=== PATIENT | male | born 1940 | race Caucasian/White ===

== ENCOUNTER 2017-07-10 13:36 | Emergency (ER) | payer MEDICARE ==
[2017-07-10 16:23] LABS: BASO # 0.1 10^3/uL (0.0-0.2); BASO % 0.8 % (0.0-1.0); EOS # 0.3 10^3/uL (0.0-0.50); EOS % 2.6 % (0.0-3.0); HEMOGLOBIN 14.7 g/dl (13.5-17.5); IMMATURE GRANULOCYTE % 0.7 % (0-3.0); LYMPH % 28.8 % (24.0-44.0); MEAN CORPUSCULAR HEMOGLOBIN 29.8 pg (27.0-33.0); MEAN CORPUSCULAR HGB CONC 33.4 g/dl (32.0-36.5); MEAN CORPUSCULAR VOLUME 89.2 fl (80.0-96.0); MONO % 9.8 % (0.0-5.0); NEUTROPHILS # 5.9 10^3/uL (1.8-7.7); NEUTROPHILS % 57.3 % (36.0-66.0); PLATELET COUNT, AUTOMATED 307 10^3/uL (150-450); RED BLOOD COUNT 4.93 10^6/uL (4.30-6.10); RED CELL DISTRIBUTION WIDTH 12.7 % (11.5-14.5); WHITE BLOOD COUNT 10.3 10^3/uL (4.0-10.0)
[2017-07-10] MEDS: NS 500 ML IV (16:44)
[2017-07-10] MEDS: methylPREDNISolone INJ 125 MG/2 ML VIAL (J2930) IV (16:45)
[2017-07-10 16:48] LABS: ERYTHROCYTE SEDIMENTATION RATE 47 mm/hr (0-20)
[2017-07-10 16:51] LABS: ANION GAP 3 MEQ/L (8-16); BLOOD UREA NITROGEN 10 MG/DL (7-18); C REACTIVE PROTEIN QUANTITATIV 7.84 MG/DL (0.00-0.30); CALCIUM LEVEL 8.9 MG/DL (8.8-10.2); CARBON DIOXIDE LEVEL 30 MEQ/L (21-32); CHLORIDE LEVEL 104 MEQ/L (98-107); CREATININE FOR GFR 0.81 MG/DL (0.70-1.30); GLOMERULAR FILTRATION RATE > 60.0 (>42); GLUCOSE, FASTING 98 MG/DL (70-100); POTASSIUM SERUM 4.6 MEQ/L (3.5-5.1); SODIUM LEVEL 137 MEQ/L (136-145)
[2017-07-10] MEDS: DOXYCYCLINE HYCLATE 100 MG TAB PO (17:45)
[2017-07-10] MEDS: ACETAMINOPH W/CODEINE #3 TAB UD PO (17:57)
[2017-07-13 17:41] LABS: ANTINUCLEAR ANTIBODIES DIRECT Negative (Negative); IgG P18 AB Absent (.); IgG P23 AB Absent (.); IgG P28 AB Absent (.); IgG P30 AB Absent (.); IgG P39 AB Absent (.); IgG P41 AB Absent (.); IgG P45 AB Absent (.); IgG P58 AB Absent (.); IgG P66 AB Absent (.); IgG P93 AB Absent (.); IgM P23 AB Absent (.); IgM P39 AB Absent (.); IgM P41 AB Absent (.); LYME IgG WB INTERPRETATION Negative (.); LYME IgM WB INTERPRETATION Negative (.)
== END 2017-07-10 18:17 | disposition home or self-care (01) ==
LOC: M ED 13:36
DX: M25.50 Pain in unspecified joint (principal); E03.9 Hypothyroidism, unspecified; K21.9 Gastro-esophageal reflux disease without esophagitis; Z79.82 Long term (current) use of aspirin; Z79.899 Other long term (current) drug therapy
CPT/HCPCS: J2930

== ENCOUNTER → 2017-10-31 | Outpatient (CLI) | payer MEDICARE ==
[2017-10-31 12:46] LABS: HEMOGLOBIN 14.5 g/dl (13.5-17.5); MEAN CORPUSCULAR HEMOGLOBIN 30.9 pg (27.0-33.0); MEAN CORPUSCULAR VOLUME 93.6 fl (80.0-96.0); PLATELET COUNT, AUTOMATED 233 10^3/uL (150-450); RED CELL DISTRIBUTION WIDTH 14.2 % (11.5-14.5); WHITE BLOOD COUNT 13.6 10^3/uL (4.0-10.0)
[2017-10-31 13:08] LABS: ERYTHROCYTE SEDIMENTATION RATE 19 mm/hr (0-20)
[2017-10-31 13:56] LABS: CHOLESTEROL LEVEL 197 MG/DL (<200); CHOLESTEROL RISK RATIO 2.736 (<5); HDL CHOLESTEROL 72 MG/DL (>40); LDL CHOLESTEROL 104 MG/DL (<100); NON-HDL-C 125 MG/DL; PROSTATIC SPECIFIC AG MONITOR 1.97 NG/ML (< 4.0); RHEUMATOID FACTOR QUANT < 10.0 IU/ML (<15.0); THYROID STIMULATING HORMONE 0.048 uIU/ML (0.358-3.740); TRIGLYCERIDES LEVEL 104 MG/DL (<150)
[2017-10-31 15:46] LABS: ESTIMATED AVERAGE GLUCOSE 108 MG/DL (60-110); HEMOGLOBIN A1c 5.4 %
== END ==
LOC: M LRY 08:07
DX: M06.9 Rheumatoid arthritis, unspecified (principal); I10 Essential (primary) hypertension; R53.83 Other fatigue; Z79.899 Other long term (current) drug therapy
CPT/HCPCS: 84443

== ENCOUNTER → 2018-02-02 | Outpatient (REF) | payer MEDICARE ==
[2018-02-02 16:03] LABS: BASO # 0.1 10^3/uL (0.0-0.2); BASO % 0.6 % (0.0-1.0); EOS % 0.2 % (0.0-3.0); HEMATOCRIT 47.1 % (42.0-52.0); HEMOGLOBIN 15.9 g/dl (13.5-17.5); IMMATURE GRANULOCYTE % 1.5 % (0-3.0); LYMPH # 2.6 10^3/uL (1.5-4.5); LYMPH % 20.5 % (24.0-44.0); MEAN CORPUSCULAR HGB CONC 33.8 g/dl (32.0-36.5); MEAN CORPUSCULAR VOLUME 91.8 fl (80.0-96.0); MONO # 0.7 10^3/uL (0.0-0.8); MONO % 5.4 % (0.0-5.0); NEUTROPHILS # 9.2 10^3/uL (1.8-7.7); NEUTROPHILS % 71.8 % (36.0-66.0); PLATELET COUNT, AUTOMATED 272 10^3/uL (150-450); RED BLOOD COUNT 5.13 10^6/uL (4.30-6.10); RED CELL DISTRIBUTION WIDTH 13.5 % (11.5-14.5); WHITE BLOOD COUNT 12.8 10^3/uL (4.0-10.0)
[2018-02-02 16:04] LABS: ALBUMIN 3.7 GM/DL (3.2-5.2); ALBUMIN/GLOBULIN RATIO 1.19 (1.00-1.93); ALKALINE PHOSPHATASE 63 U/L (45-117); ALT/SGPT 76 U/L (12-78); ANION GAP 9 MEQ/L (8-16); AST/SGOT 34 U/L (7-37); BILIRUBIN,TOTAL 0.5 MG/DL (0.2-1.0); BLOOD UREA NITROGEN 12 MG/DL (7-18); C REACTIVE PROTEIN QUANTITATIV < 0.30 MG/DL (0.00-0.30); CALCIUM LEVEL 9.3 MG/DL (8.8-10.2); CARBON DIOXIDE LEVEL 28 MEQ/L (21-32); CHLORIDE LEVEL 100 MEQ/L (98-107); CREATININE FOR GFR 0.92 MG/DL (0.70-1.30); GLOMERULAR FILTRATION RATE > 60.0 (>42); GLUCOSE, FASTING 98 MG/DL (70-100); POTASSIUM SERUM 4.5 MEQ/L (3.5-5.1); RHEUMATOID FACTOR QUANT < 10.0 IU/ML (<15.0); SODIUM LEVEL 137 MEQ/L (136-145); TOTAL PROTEIN 6.8 GM/DL (6.4-8.2); URIC ACID 4.7 MG/DL (3.5-7.2)
[2018-02-02 17:08] LABS: ERYTHROCYTE SEDIMENTATION RATE 6 mm/hr (0-20)
== END ==
LOC: M SFHCPLAZ 14:14
DX: M35.3 Polymyalgia rheumatica (principal)
CPT/HCPCS: 84550

== ENCOUNTER → 2018-03-01 | Outpatient (REF) | payer MEDICARE ==
[~2018-03-01] MED LIST: ACET30TAB PO; ARTH650T11 PO; ASPI1TAB PO; CHLO1CAP14 PO; CITA20TA4 PO; DICY10CA13 PO; DOXY-350 PO; GAVISUS PO; METO5TAB2 PO; OMEP20CA3 PO; SUCR1TA PO; THYR60TA PO; TYLE500T78 PO
[2018-03-01 20:40] LABS: C REACTIVE PROTEIN QUANTITATIV 0.46 MG/DL (0.00-0.30); FREE T4 0.61 NG/DL (0.76-1.46); THYROID STIMULATING HORMONE 1.68 uIU/ML (0.358-3.740)
== END ==
LOC: M SFHCPLAZ 15:44
PROVIDERS: ATTEND Internal Medicine Rheumatology
DX: M35.3 Polymyalgia rheumatica (principal); E03.9 Hypothyroidism, unspecified

== ENCOUNTER → 2018-03-01 | Outpatient (CLI) | payer MEDICARE ==
--- NOTE | 2018-03-01 18:53 | REP ---
Bilateral shoulder series: Seven views. History: Shoulder pain. Findings: Glenohumeral and acromioclavicular joints are normally aligned bilaterally. There is mild narrowing and spur formation at the AC joints on both sides. There is some diffuse osteopenia. There is linear fibrosis in the right base and mediastinal clips are noted on the right. No erosive changes seen. Periarticular soft tissues are unremarkable. Impression: Diffuse osteopenia. 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 No acute bony abnormality. Electronically Signed by Adeel Min MD 03/01/2018 07:47 P
--- NOTE | 2018-03-01 19:04 | REP ---
Cervical spine series: Eight views. History: Shoulder pain. Findings: Lateral views done in flexion/extension and neutral position show preserved vertebral body heights. Discogenic spurring and disc narrowing is seen at C3-4, C4-5, C5-6, and C6-7. There is mild osteoarthritic facet hypertrophy noted on the AP views. The patient is edentulous. Oblique images demonstrate uncovertebral spurring on the left narrowing the C5-6 and C6-7 foramina and on the right at C4-5 and C5-6. Impression: Degenerative spondylosis changes as above. No subluxation or instability. Electronically Signed by Adeel Min MD 03/01/2018 07:48 P
== END ==
LOC: M LRY 16:35
PROVIDERS: ATTEND Internal Medicine Rheumatology
DX: M50.31 Other cervical disc degeneration, high cervical region (principal); M50.321 Other cervical disc degeneration at C4-C5 level; M50.322 Other cervical disc degeneration at C5-C6 level; M50.323 Other cervical disc degeneration at C6-C7 level; M25.78 Osteophyte, vertebrae; M85.811 Other specified disorders of bone density and structure, right shoulder; M85.812 Other specified disorders of bone density and structure, left shoulder; M19.011 Primary osteoarthritis, right shoulder; M19.012 Primary osteoarthritis, left shoulder; M25.519 Pain in unspecified shoulder

== ENCOUNTER → 2018-03-28 | Outpatient (REF) | payer MEDICARE ==
[2018-03-28 13:32] LABS: APPEARANCE, URINE CLEAR (CLEAR); BACTERIA, URINE AUTO NEGATIVE (NEGATIVE); BILIRUBIN, URINE AUTO NEGATIVE (NEGATIVE); BLOOD, URINE BLOOD NEGATIVE (NEGATIVE); COLOR, URINE YELLOW (YELLOW); GLUCOSE, URINE (UA) AUTO NEGATIVE (NEGATIVE); KETONE, URINE AUTO NEGATIVE (NEGATIVE); LEUKOCYTE ESTERASE, URINE AUTO NEGATIVE (NEGATIVE); MUCUS, URINE SMALL (NEGATIVE); NITRITE, URINE AUTO NEGATIVE (NEGATIVE); PROTEIN, URINE AUTO NEGATIVE (NEGATIVE); RBC, URINE AUTO 0 /HPF (0-3); SPECIFIC GRAVITY URINE AUTO 1.017 (1.002-1.035); SQUAMOUS EPITHELIAL CELL UR AU 0 /HPF (0-6); WBC, URINE AUTO 0 /HPF (0-3)
[2018-03-28 13:37] LABS: C REACTIVE PROTEIN QUANTITATIV 0.48 MG/DL (0.00-0.30)
[2018-03-28 14:00] LABS: TOTAL PROTEIN,RANDOM URINE 25.9 MG/DL (0.0-12.0)
== END ==
LOC: M SFHCPLAZ 11:13
PROVIDERS: ATTEND Internal Medicine Rheumatology
DX: M35.3 Polymyalgia rheumatica (principal)

== ENCOUNTER → 2019-01-10 | Outpatient (CLI) | payer MEDICARE ==
[~2019-01-10] MED LIST changes: +ACET-716 PO; -ACET30TAB PO; -ASPI1TAB PO; +ASPI81TA26 PO; -CITA20TA4 PO; +CITA20TA6 PO; -OMEP20CA3 PO; +OMEP20CA4 PO
[2019-01-10 12:38] LABS: HEMOGLOBIN 13.7 g/dl (13.5-17.5); MEAN CORPUSCULAR HEMOGLOBIN 25.3 pg (27.0-33.0); MEAN CORPUSCULAR HGB CONC 30.4 g/dl (32.0-36.5); MEAN CORPUSCULAR VOLUME 83.2 fl (80.0-96.0); PLATELET COUNT, AUTOMATED 321 10^3/uL (150-450); RED BLOOD COUNT 5.41 10^6/uL (4.30-6.10); WHITE BLOOD COUNT 13.5 10^3/uL (4.0-10.0)
[2019-01-10 12:56] LABS: HEMOGLOBIN A1c 5.6 %
[2019-01-10 13:18] LABS: ALBUMIN 3.2 GM/DL (3.2-5.2); ALT/SGPT 24 U/L (12-78); AMYLASE 36 U/L (25-115); BILIRUBIN,TOTAL 0.4 MG/DL (0.2-1.0); BLOOD UREA NITROGEN 10 MG/DL (7-18); CALCIUM LEVEL 9.1 MG/DL (8.8-10.2); CARBON DIOXIDE LEVEL 28 MEQ/L (21-32); CHLORIDE LEVEL 100 MEQ/L (98-107); CREATININE FOR GFR 0.97 MG/DL (0.70-1.30); GLOMERULAR FILTRATION RATE > 60.0 (>42); GLUCOSE, FASTING 86 MG/DL (70-100); POTASSIUM SERUM 4.5 MEQ/L (3.5-5.1); PROSTATIC SPECIFIC AG MONITOR 3.98 NG/ML (< 4.00); SODIUM LEVEL 136 MEQ/L (136-145); TOTAL PROTEIN 6.8 GM/DL (6.4-8.2)
== END ==
LOC: M LAB 11:53
PROVIDERS: ATTEND Family Medicine
DX: R97.20 Elevated prostate specific antigen [PSA] (principal); E03.9 Hypothyroidism, unspecified; Z79.899 Other long term (current) drug therapy; Z79.82 Long term (current) use of aspirin

== ENCOUNTER → 2019-01-18 | Outpatient (CLI) | payer MEDICARE ==
[~2019-01-18] MED LIST changes: +D-20TAB PO; +MULTCAP PO; +PRED1TABL PO; +PRED5TA PO; +PROBCAP14 PO; +TEST200I14 IM
--- NOTE | 2019-01-18 15:37 | REP ---
Clinical: Epigastric mass. Technique: Axial noncontrast images from the thoracic inlet to the upper abdomen with coronal and sagittal re-formations. Comparison: The lung images from abdominal CT dated 09/03/2014. Findings: The patient appears to be status post esophagectomy with gastric pull-through procedure. The intrathoracic stomach extends to the right side of the thorax and contains significant residual gastric material likely transient. A small chronic right basilar pleural effusion and associated fiber atelectatic changes along with pleuroparenchymal changes along the periphery of the right middle lobe remain stable compared to 2015. No acute consolidation, obvious nodule or mass lesion. Mediastinum demonstrates atherosclerotic changes to the thoracic aorta and coronary arteries. No adenopathy. No cardiomegaly or pericardial effusion. Osseous structures without focal abnormality noted. Impression: 1. Chronic changes involving the mediastinum and right hemithorax as described above consistent with prior esophagectomy and gastric pull-through procedure which remain stable compared to 2015. 2. No acute mediastinal or pleuroparenchymal process appreciated. If there is continued concern, PET-CT to evaluate for subtle metastatic disease may be warranted. Electronically Signed by Roe Mtz MD 01/18/2019 03:28 P
--- NOTE | 2019-01-18 15:41 | REP ---
Clinical: Mass. Technique: Axial noncontrast images from the lung bases to the pubic symphysis with coronal and sagittal re-formations. Comparison: 09/03/2014. Findings: Stable findings at the lung bases and upper abdomen consistent with the given history of esophagectomy and gastric pull-through surgery unchanged compared to 2015. Subcentimeter hypodensity in the left lobe of the liver remains stable and consistent with small cyst or hemangioma. Spleen, pancreas, bilateral adrenal glands and kidneys are essentially normal for noncontrast evaluation. Evidence of prior cholecystectomy. Evaluation of the enteric system is without obstruction there is a small supraumbilical midline ventral hernia which contains nonobstructed portion of the transverse colon. Colonic diverticulosis noted without acute diverticulitis. Normal terminal ileum and appendix are identified in the right lower quadrant. Pelvis demonstrates prostatomegaly measuring 6.7 x 5.2 cm diameter and having mass effect on the otherwise normal appearing bladder. Small fat containing inguinal hernias noted. No ascites. No free air. No adenopathy. Atherosclerotic changes to the aorta and vasculature noted without aneurysm. Musculoskeletal structures demonstrate degenerative changes. Impression: 1. Chronic stable changes related to prior esophagectomy and gastric pull-through surgery. 2. Small supraumbilical ventral hernia containing unobstructed portion of the transverse colon. 3. Prostatomegaly. 4. Colonic diverticulosis without acute diverticulitis. 5. Fat containing inguinal hernias. 6. No further acute abdominopelvic pathology appreciated. Electronically Signed by Roe Mtz MD 01/18/2019 03:32 P
== END ==
LOC: M RAD 14:37
PROVIDERS: ATTEND Family Medicine
DX: Z90.49 Acquired absence of other specified parts of digestive tract (principal); J91.8 Pleural effusion in other conditions classified elsewhere; K43.9 Ventral hernia without obstruction or gangrene; N40.1 Benign prostatic hyperplasia with lower urinary tract symptoms; K57.30 Diverticulosis of large intestine without perforation or abscess without bleeding

== ENCOUNTER 2019-01-30 09:16 | Day surgery (SDC) | payer MEDICARE ==
[~2019-01-30] VITALS: Ht 177.8 cm; Wt 107.0 kg
[~2019-01-30 09:16] MED LIST changes: +NS 1,000 ML IV ONE; +OMEP-172 PO; -OMEP20CA4 PO
[2019-01-30] MEDS ORDERED: PROPOFOL 200 MG/20 ML VIAL As Ordered ONE ×2 (10:48→10:49)
[2019-01-30] MEDS ORDERED: LIDOCAINE 2% INJ 100 MG/5 ML SDV (FOR ANES.) As Ordered ONE (10:49)
[2019-01-30 12:45] VITALS: BP 160/73
--- NOTE | 2019-01-30 13:36 | ROOR ---
Patient Name: Bobby Zimmerman Procedure Date: 01/30/2019 10:44 AM Date of : 1940 Age: 78 Room: [facility] Gender: Male Note Status: Finalized Procedure: Upper GI endoscopy Indications: Assessment following esophagogastrectomy Providers: Rubin Garcia MD Referring MD: NANNETTE WOODARD MD Requesting Provider: Medicines: Monitored Anesthesia Care Complications: No immediate complications. Procedure: Pre-Anesthesia Assessment: - Prior to the procedure, a History and Physical was performed, and patient medications and allergies were reviewed. The patient is competent. The risks and benefits of the procedure and the sedation options and risks were discussed with the patient. All questions were answered and informed consent was obtained. Patient identification and proposed procedure were verified by the physician, the nurse and the anesthesiologist in the procedure room. Mental Status Examination: alert and oriented. CV Examination: regular rate and rhythm. Prophylactic Antibiotics: The patient does not require prophylactic antibiotics. Prior Anticoagulants: The patient has taken no previous anticoagulant or antiplatelet agents. ASA Grade Assessment: III - A patient with severe systemic disease. After reviewing the risks and benefits, the patient was deemed in satisfactory condition to undergo the procedure. The anesthesia plan was to use monitored anesthesia care (MAC). Immediately prior to administration of medications, the patient was re-assessed for adequacy to receive sedatives. The heart rate, respiratory rate, oxygen saturations, blood pressure, adequacy of pulmonary ventilation, and response to care were monitored throughout the procedure. The physical status of the patient was re-assessed after the procedure. The Endoscope was introduced through the mouth, and advanced to the esophageal anastomosis. The upper GI endoscopy was performed with difficulty due to presence of food. Successful completion of the procedure was aided by performing the maneuvers documented (below) in this report. The patient tolerated the procedure well. Findings: Food was found in the proximal esophagus. Removal of food was accomplished. Several fragments of what appeared to be a leafy vegetable were suctioned to the end of the scope and withdrawn. The esopagogastric anastomosis appeared normal. There was a transversely oriented ulceration running approximately [address] across the esophagus. A large amount of food (residue) was found in the entire examined stomach. The gastric remnant seemed to be filled with vegetable matter so the examination was aborted. Impression: - Food in the proximal esophagus. Removal was successful. - A large amount of food (residue) in the stomach. - Non-bleeding esophageal ulcer. Recommendation: - Discharge patient to home. - Resume previous diet. - Continue present medications. - Return to my office at appointment to be scheduled. Rubin Garcia MD Rubin Garcia MD 01/30/2019 1:35:58 PM Electronically signed by Rubin Garcia MD Number of Addenda: 0 Note Initiated On: 01/30/2019 10:44 AM Estimated Blood Loss: Estimated blood loss: none.
--- NOTE | 2019-01-30 16:05 | ROOR ---
Patient Name: Bobby Zimmerman Procedure Date: 01/30/2019 10:44 AM Date of : 1940 Age: 78 Room: [facility] Gender: Male Note Status: Finalized Procedure: Colonoscopy Indications: High risk colon cancer surveillance: Personal history of colonic polyps Providers: Rubin Garcia MD Referring MD: NANNETTE WOODARD MD Requesting Provider: Medicines: Monitored Anesthesia Care Complications: No immediate complications. Procedure: Pre-Anesthesia Assessment: - Prior to the procedure, a History and Physical was performed, and patient medications and allergies were reviewed. The patient is competent. The risks and benefits of the procedure and the sedation options and risks were discussed with the patient. All questions were answered and informed consent was obtained. Patient identification and proposed procedure were verified by the physician, the nurse and the anesthesiologist in the procedure room. Mental Status Examination: alert and oriented. Prophylactic Antibiotics: The patient does not require prophylactic antibiotics. Prior Anticoagulants: The patient has taken no previous anticoagulant or antiplatelet agents. ASA Grade Assessment: III - A patient with severe systemic disease. After reviewing the risks and benefits, the patient was deemed in satisfactory condition to undergo the procedure. The anesthesia plan was to use monitored anesthesia care (MAC). Immediately prior to administration of medications, the patient was re-assessed for adequacy to receive sedatives. The heart rate, respiratory rate, oxygen saturations, blood pressure, adequacy of pulmonary ventilation, and response to care were monitored throughout the procedure. The physical status of the patient was re-assessed after the procedure. The Colonoscope was introduced through the anus with the intention of advancing to the cecum. The scope was advanced to the sigmoid colon before the procedure was aborted. Medications were given. The colonoscopy was aborted due to the patient's respiratory instability (hypoxia). Managing the patient's medical instability did not allow for the successful completion of the procedure. Findings: The perianal and digital rectal examinations were normal. A possible polyp up to 6 mm was briefly seen in the sigmoid colon. [Pedicle]. Diverticula were found in the sigmoid colon. Impression: - The procedure was aborted due to the patient's respiratory instability (hypoxia). - No specimens collected. Recommendation: - Discharge patient to home. - Resume previous diet. - Continue present medications. - Return to my office in 2 weeks. - Patient will need further evaluation to determine the cause of the retained food in the stomach and esophagus. He should have a follow up colonic study as he seemed to have at least 1 polyp seen briefly before the scope was aborted. Rubin Garcia MD Rubin Garcia MD 01/30/2019 4:04:49 PM Electronically signed by Rubin Garcia MD Number of Addenda: 0 Note Initiated On: 01/30/2019 10:44 AM Estimated Blood Loss: Estimated blood loss: none.
== END 2019-01-30 13:20 | disposition home or self-care (01) ==
LOC: M OPP 09:16
PROVIDERS: ATTEND Surgery
DX: T18.128A Food in esophagus causing other injury, initial encounter (principal); X58.XXXA Exposure to other specified factors, initial encounter; Y92.89 Other specified places as the place of occurrence of the external cause; K22.10 Ulcer of esophagus without bleeding; Z90.49 Acquired absence of other specified parts of digestive tract; Z85.01 Personal history of malignant neoplasm of esophagus; Z12.11 Encounter for screening for malignant neoplasm of colon; Z86.010 Personal history of colon polyps; Z80.0 Family history of malignant neoplasm of digestive organs; R09.02 Hypoxemia; Z53.09 Procedure and treatment not carried out because of other contraindication; E03.9 Hypothyroidism, unspecified; R06.02 Shortness of breath; M19.90 Unspecified osteoarthritis, unspecified site; M35.3 Polymyalgia rheumatica; K44.9 Diaphragmatic hernia without obstruction or gangrene; K58.9 Irritable bowel syndrome, unspecified; K57.92 Diverticulitis of intestine, part unspecified, without perforation or abscess without bleeding; Z79.899 Other long term (current) drug therapy; Z79.52 Long term (current) use of systemic steroids
CPT/HCPCS: 43215; G0105

== ENCOUNTER → 2019-02-28 | Outpatient (CLI) | payer MEDICARE ==
[~2019-02-28] MED LIST changes: -ARTH650T11 PO; +ARTH650T4 PO; -NS 1,000 ML IV ONE; -OMEP-172 PO; +OMEP1CAP73 PO
[2019-02-28 09:24] LABS: HEMATOCRIT 47.7 % (42.0-52.0); MEAN CORPUSCULAR HGB CONC 29.4 g/dl (32.0-36.5); MEAN CORPUSCULAR VOLUME 81.7 fl (80.0-96.0); PLATELET COUNT, AUTOMATED 296 10^3/uL (150-450); RED BLOOD COUNT 5.84 10^6/uL (4.30-6.10); WHITE BLOOD COUNT 10.7 10^3/uL (4.0-10.0)
[2019-02-28 09:35] LABS: INR 1.21
--- NOTE | 2019-02-28 09:56 | REP ---
CHEST, TWO VIEWS: Comparison 09/03/2014. Bibasilar fibrotic scarring and blunting of the right costophrenic angle and posterior costophrenic sulcus are all unchanged. No acute infiltrate is seen. Heart does not appear to be significantly enlarged. Mediastinal silhouette is unchanged. There are mild degenerative changes of the spine. IMPRESSION: Stable chronic findings without evidence of acute infiltrate. Electronically Signed by Chacorta Wolf MD 02/28/2019 05:35 P
[2019-02-28 09:59] LABS: ALBUMIN 3.4 GM/DL (3.2-5.2); ALT/SGPT 25 U/L (12-78); BILIRUBIN,TOTAL 0.3 MG/DL (0.2-1.0); BLOOD UREA NITROGEN 8 MG/DL (7-18); CALCIUM LEVEL 8.8 MG/DL (8.8-10.2); CARBON DIOXIDE LEVEL 29 MEQ/L (21-32); CHLORIDE LEVEL 102 MEQ/L (98-107); CHOLESTEROL LEVEL 202 MG/DL (<200); CHOLESTEROL RISK RATIO 4.697 (<5); CREATININE FOR GFR 0.95 MG/DL (0.70-1.30); GLOMERULAR FILTRATION RATE > 60.0 (>42); GLUCOSE, FASTING 81 MG/DL (70-100); HDL CHOLESTEROL 43 MG/DL (>40); LDL CHOLESTEROL 131 MG/DL (<100); NON-HDL-C 159 MG/DL; POTASSIUM SERUM 4.4 MEQ/L (3.5-5.1); SODIUM LEVEL 138 MEQ/L (136-145); THYROID STIMULATING HORMONE 0.111 uIU/ML (0.358-3.740); TOTAL PROTEIN 6.7 GM/DL (6.4-8.2); TRIGLYCERIDES LEVEL 138 MG/DL (<150)
[2019-02-28 10:40] LABS: HEMOGLOBIN A1c 6.1 %
[2019-02-28 11:14] LABS: TESTOSTERONE 886 NG/DL (241-827)
--- NOTE | 2019-02-28 19:54 | ECGEPIP ---
[facility] Test Date: 2019-02-28 Pat Name: DARSHANA RAO Department: Room: - Gender: Male Medical Staff Specialist: TRINIDAD : 1940 Requested By: Shoshana Infante Order Number: [id number] Reading MD: Dandy Alaniz Measurements Intervals [place] Rate: 64 P: 54 MO: 202 QRS: -5 QRSD: 104 T: 18 QT: 387 QTc: 402 Interpretive Statements SINUS RHYTHM WITH OCCASIONAL VENTRICULAR PREMATURE COMPLEXES Comparison tracing not on file Electronically Signed on 02-28-2019 19:53:55 EST by Dandy Alaniz
== END ==
LOC: M LAB 08:14
PROVIDERS: ATTEND Family Medicine
DX: I10 Essential (primary) hypertension (principal); E03.9 Hypothyroidism, unspecified; R53.83 Other fatigue; Z01.818 Encounter for other preprocedural examination; Z79.899 Other long term (current) drug therapy

== ENCOUNTER 2019-03-16 07:19 | Day surgery (SDC) | payer MEDICARE ==
[~2019-03-16] VITALS: Ht 177.8 cm; Wt 103.3 kg
[~2019-03-16 07:19] MED LIST changes: +LR 1,000 ML IV ONE
[2019-03-16] MEDS ORDERED: propofoL 500 MG/50 ML VIAL As Ordered ONE (08:05)
[2019-03-16] MEDS ORDERED: LIDOCAINE 2% INJ 100 MG/5 ML SDV (FOR ANES.) As Ordered ONE (08:05)
[2019-03-16] MEDS ORDERED: SUCCINYLCHOLINE 100 MG/5 ML SYRINGE (J0330) As Ordered ONE (09:51)
[2019-03-16] MEDS ORDERED: ePHEDrine SULFATE 25 MG/5 ML(5MG/ML) SYRINGE As Ordered ONE ×2 (09:51→12:21)
[2019-03-16] MEDS ORDERED: PHENYLephrine HCL 500 MCG/5 ML (100MCG/ML) SYRINGE (J2370) As Ordered ONE (10:06)
[2019-03-16] MEDS ORDERED: ROCURONIUM BROMIDE 50 MG/5 ML VIAL As Ordered ONE (10:09)
[2019-03-16] MEDS ORDERED: SUGAMMADEX SODIUM 500 MG/5 ML VIAL (BRIDION) As Ordered ONE (10:32)
[2019-03-16] MEDS ORDERED: ONDANSETRON 4MG/2ML VIAL (J2405) IV PRN (11:45)
[2019-03-16] MEDS ORDERED: LR 1,000 ML IV SCH (11:45)
[2019-03-16] MEDS ORDERED: HYDROMORPHONE HCL 0.5 MG/ 0.5 ML SYRINGE (J1170 PER 1) IV PRN (11:45)
[2019-03-16] MEDS ORDERED: fentaNYL 100 MCG/2 ML INJECTION (J3010) IV PRN (11:45)
[2019-03-16 13:08] VITALS: BP 127/60
--- NOTE | 2019-03-16 21:17 | RO ---
DATE OF PROCEDURE: 03/16/2019 PREOPERATIVE DIAGNOSIS: Chronic diarrhea with possible colonic polyp on recent aborted colonoscopy. POSTOPERATIVE DIAGNOSIS: Multiple colonic polyps, sigmoid diverticulosis, and chronic diarrhea. PROCEDURE PERFORMED Colonoscopy, snare excision of multiple polyps, biopsy of several small polyps, and mucosal biopsies for chronic diarrhea. SURGEON: Rubin Garcia MD ANESTHESIA: General. INDICATIONS FOR PROCEDURE The patient is a 78-year-old man with a history of colonic polyps. On January 30 an EGD and colonoscopy were attempted. He is status post an esophagogastrectomy for cancer and his esophagus is quite short. He had retained food in his gastric remnant. His colonoscopy was attempted but with adequate sedation to perform the procedure he had respiratory difficulties with desaturations and he had his procedure aborted and is brought in today for colonoscopy under general anesthesia. At the time of that aborted colonoscopy I did think that I had seen a small polyp at the level of about 30 cm. OPERATIVE PROCEDURE The patient was brought to the operating room and placed under general endotracheal anesthesia. He was rolled into a left lateral decubitus position. A digital rectal examination was performed which revealed no palpable mucosal lesions. The colonoscope was inserted and advanced under continuous video monitoring to the cecum. The appendiceal orifice was clearly identified. His bowel prep was good though there was some greenish turbid fluid in the right colon but this could be aspirated and irrigated without much difficulty. The scope was slowly withdrawn. There was a small polyps no more than 3-4 mm in the ascending colon and this was removed with a jumbo forceps and sent for pathology. With further withdrawal of the scope. The patient was noted to have multiple polyps through the colon including the ascending colon, transverse colon, descending colon and sigmoid. There were at least six to eight polyps in the range of 4-7 mm that were removed with a hot snare. One of these polyps was not adequately cauterized and a single hemostatic hemoclip was placed to stop some oozing at this polypectomy site. All of these fragments were collected and sent together as colonic polyps. Also in the transverse colon there were several small polyps noted together. These were all approximately 3 mm in size and three or four of these were biopsied with a jumbo forceps essentially destroying the polyps. These fragments were all sent in a second container labeled colonic polyps. Several random biopsies of the mucosa were also obtained during the course of the procedure given his history of chronic diarrhea. He was noted to have fairly marked diverticulosis, particularly involving the distal descending and sigmoid colons. The patient tolerated the procedure well without apparent complication. His bleeding was minimal. He was awakened in the operating room, extubated and transported to the recovery room in stable condition. OSITO
== END 2019-03-16 13:09 | disposition home or self-care (01) ==
LOC: M SDC 07:19
PROVIDERS: ATTEND Surgery
DX: D12.6 Benign neoplasm of colon, unspecified (principal); K57.30 Diverticulosis of large intestine without perforation or abscess without bleeding; M35.3 Polymyalgia rheumatica; K58.0 Irritable bowel syndrome with diarrhea; E03.9 Hypothyroidism, unspecified; F41.9 Anxiety disorder, unspecified; F32.9 Major depressive disorder, single episode, unspecified; K44.9 Diaphragmatic hernia without obstruction or gangrene; K21.9 Gastro-esophageal reflux disease without esophagitis; M19.90 Unspecified osteoarthritis, unspecified site; Z85.01 Personal history of malignant neoplasm of esophagus; Z87.891 Personal history of nicotine dependence; Z79.899 Other long term (current) drug therapy; Z79.52 Long term (current) use of systemic steroids
CPT/HCPCS: 45380; 45384; 45385; 88305; J0330; J2370

== ENCOUNTER → 2019-08-22 | Outpatient (CLI) | payer MEDICARE ==
[~2019-08-22] MED LIST changes: +ARTH650T11 PO; -ARTH650T4 PO; -LR 1,000 ML IV ONE
[2019-08-22 09:09] LABS: HEMATOCRIT 45.5 % (42.0-52.0); HEMOGLOBIN 14.2 g/dl (13.5-17.5); MEAN CORPUSCULAR HEMOGLOBIN 28.5 pg (27.0-33.0); MEAN CORPUSCULAR HGB CONC 31.2 g/dl (32.0-36.5); MEAN CORPUSCULAR VOLUME 91.2 fl (80.0-96.0); PLATELET COUNT, AUTOMATED 318 10^3/uL (150-450); RED BLOOD COUNT 4.99 10^6/uL (4.30-6.10); WHITE BLOOD COUNT 9.6 10^3/uL (4.0-10.0)
[2019-08-22 09:13] LABS: PROTHROMBIN TIME 12.9 SECONDS (11.8-14.0)
[2019-08-22 09:31] LABS: HEMOGLOBIN A1c 6.1 %
[2019-08-22 09:33] LABS: ALBUMIN 3.1 GM/DL (3.2-5.2); ALT/SGPT 24 U/L (12-78); BILIRUBIN,TOTAL 0.3 MG/DL (0.2-1.0); BLOOD UREA NITROGEN 11 MG/DL (7-18); CALCIUM LEVEL 9.5 MG/DL (8.8-10.2); CARBON DIOXIDE LEVEL 29 MEQ/L (21-32); CHLORIDE LEVEL 105 MEQ/L (98-107); CHOLESTEROL LEVEL 203 MG/DL (<200); CHOLESTEROL RISK RATIO 3.625 (<5); CREATININE FOR GFR 0.82 MG/DL (0.70-1.30); GLOMERULAR FILTRATION RATE > 60.0 (>42); GLUCOSE, FASTING 92 MG/DL (70-100); HDL CHOLESTEROL 56 MG/DL (>40); LDL CHOLESTEROL 116 MG/DL (<100); NON-HDL-C 147 MG/DL; POTASSIUM SERUM 4.3 MEQ/L (3.5-5.1); PROSTATIC SPECIFIC AG MONITOR 2.43 NG/ML (< 4.00); SODIUM LEVEL 140 MEQ/L (136-145); TOTAL PROTEIN 7.2 GM/DL (6.4-8.2); TRIGLYCERIDES LEVEL 154 MG/DL (<150)
--- NOTE | 2019-08-22 12:15 | ECGEPIP ---
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
--- NOTE | 2019-08-22 12:25 | REP ---
REASON FOR EXAM: Followup. Fatigue. COMPARISON: 02/29/24 There are chronic bibasilar opacities right greater than left. Although these appear stable from 29/06/2019, they appear to have increased from the next latest prior examination of 09/03/2014. The cardiomediastinal silhouette is unchanged. The heart is not enlarged. There is no significant change in the appearance of the osseous structures. IMPRESSION: There are chronic lung base changes as described above. Consider followup with chest CT for further evaluation. Electronically Signed by Vazquez Camacho DO 08/22/2019 05:20 P
== END ==
LOC: M LAB 07:49
PROVIDERS: ATTEND Family Medicine
DX: R53.83 Other fatigue (principal); E03.9 Hypothyroidism, unspecified; Z79.899 Other long term (current) drug therapy

== ENCOUNTER 2020-07-13 09:42 | Inpatient (IN) | payer MEDICARE ==
[~2020-07-13] VITALS: Ht 177.8 cm; Wt 98.5 kg
[2020-07-13] MEDS ORDERED: ACET-683 PO (09:52)
--- NOTE | 2020-07-13 10:26 | REP ---
INDICATION: Altered Mental Status COMPARISON: None. TECHNIQUE: Axial noncontrast images from the skull base to the thoracic inlet with coronal reformations. This CT examination was performed using the following dose reduction techniques: Automated exposure control, adjustment of mA and/or kv according to the patient's size, and use of iterative reconstruction technique. FINDINGS: Subacute low-density changes in the left occipital lobe is concerning for recent infarction and should be correlated clinically. No significant mass effect. No hemorrhage. Underlying chronic age-related changes noted. No extra-axial fluid collection. Calvarium is intact. Paranasal sinuses and mastoid air cells are clear. IMPRESSION: 1. Findings suggest subacute infarction involving the left occipital lobe and correlation is required. No edema, mass effect or hemorrhage noted. <Electronically signed by Roe Mtz > 07/13/20 [id number]
[2020-07-13 11:05] LABS: BASO # 0.1 10^3/uL (0.0-0.2); BASO % 0.8 % (0.0-1.0); EOS # 0.2 10^3/uL (0.0-0.5); EOS % 2.1 % (0.0-3.0); HEMATOCRIT 43.4 % (42.0-52.0); HEMOGLOBIN 14.1 g/dl (13.5-17.5); LYMPH # 2.3 10^3/uL (1.5-5.0); MEAN CORPUSCULAR HEMOGLOBIN 28.5 pg (27.0-33.0); MEAN CORPUSCULAR HGB CONC 32.5 g/dl (32.0-36.5); MEAN CORPUSCULAR VOLUME 87.7 fl (80.0-96.0); MONO % 9.6 % (2.0-8.0); NEUTROPHILS # 6.3 10^3/uL (1.5-8.5); NEUTROPHILS % 64.1 % (36.0-66.0); PLATELET COUNT, AUTOMATED 243 10^3/uL (150-450); RED BLOOD COUNT 4.95 10^6/uL (4.30-6.10); WHITE BLOOD COUNT 9.9 10^3/uL (4.0-10.0)
[2020-07-13 11:22] LABS: OSMOLALITY SERUM 286 MOSM/KG (280-301)
[2020-07-13 11:30] LABS: ERYTHROCYTE SEDIMENTATION RATE 12 mm/hr (0-20)
[2020-07-13 11:37] LABS: ALBUMIN 3.4 GM/DL (3.2-5.2); ALT/SGPT 30 U/L (12-78); BILIRUBIN,DIRECT 0.1 MG/DL (0.0-0.2); BILIRUBIN,TOTAL 0.3 MG/DL (0.2-1.0); BLOOD UREA NITROGEN 11 MG/DL (7-18); CALCIUM LEVEL 9.3 MG/DL (8.8-10.2); CARBON DIOXIDE LEVEL 28 MEQ/L (21-32); CHLORIDE LEVEL 104 MEQ/L (98-107); CPK CREATINE PHOSPHOKINASE 53 U/L (39-308); CREATININE FOR GFR 0.73 MG/DL (0.70-1.30); GLOMERULAR FILTRATION RATE > 60.0 (>42); GLUCOSE, FASTING 89 MG/DL (70-100); MB/CK RELATIVE INDEX 3.77 (< OR =4); POTASSIUM SERUM 4.5 MEQ/L (3.5-5.1); SODIUM LEVEL 138 MEQ/L (136-145); THYROID STIMULATING HORMONE 0.066 uIU/ML (0.358-3.740); TOTAL PROTEIN 6.7 GM/DL (6.4-8.2); TROPONIN I < 0.02 NG/ML (< 0.10)
[2020-07-13] MEDS ORDERED: METO10TA2 PO (11:39)
[2020-07-13] MEDS ORDERED: DICY20TA11 PO (11:39)
[2020-07-13] MEDS ORDERED: LEXA1TAB PO (11:39)
[2020-07-13] MEDS ORDERED: NP T60TA PO (11:39)
[2020-07-13] MEDS ORDERED: FLUO40CA PO (11:39)
[2020-07-13] MEDS ORDERED: D31000TA2 PO (11:39)
[2020-07-13] MEDS ORDERED: OMEP-221 PO (11:39)
[2020-07-13] MEDS ORDERED: METOCLOPRAMIDE 10 MG TAB PO PRN (12:45)
[2020-07-13 12:47] LABS: FREE T3 3.4 PG/ML (2.2-4.0)
--- NOTE | 2020-07-13 12:58 | REPVR ---
PROCEDURE INFORMATION: Exam: MR Head Without Contrast Exam date and time: 07/13/2020 12:46 PM Age: 80 years old Clinical indication: Abnormal findings; Abnormal radiologic findings of head/skull; Intracranial mass/space-occupying lesion; Additional info: ? Occiptal infarct on CT TECHNIQUE: Imaging protocol: MR of the head without contrast. COMPARISON: CT Head without contrast 07/13/2020 10:06 AM FINDINGS: Brain: Medial left temporal and parieto-occipital true diffusion restriction with correlative cytotoxic edema on the T2 weighted imaging in keeping with recent, subacute infarction in the left [employer]EN[employer]ICE TECHNICIAN territory. No evidence of infarct hemorrhagic conversion. The brain demonstrates generalized volume loss. Patchy foci of increased signal intensity in the deep and subcortical white matter as well as ulices on the T2 weighted imaging most likely representing chronic small vessel ischemic change. Cerebral ventricles: The posterior left lateral ventricle is partially effaced. The ventricles are otherwise mildly enlarged in keeping with volume loss. Bones/joints: Unremarkable. Paranasal sinuses: Normal as visualized. No acute sinusitis. Mastoid air cells: The mastoids are chronically underpneumatized. Orbital cavity: Thinning of the lenses of the globes consistent with prior lens surgery. Soft tissues: Left frontal scalp likely sebaceous cyst. 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 Electronically signed by: Emma Ye On 07/13/2020 12:58:14 PM
--- NOTE | 2020-07-13 13:03 | REPVR ---
PROCEDURE INFORMATION: Exam: MRA Head Without Contrast; Arteriography Exam date and time: 07/13/2020 12:46 PM Age: 80 years old Clinical indication: Abnormal findings; Abnormal CT of the head; Additional info: ? Occiptal infarct on CT. Given the presence of infarct, evaluation of the intracranial arteries was performed. TECHNIQUE: Imaging protocol: Magnetic resonance angiography head without contrast. Exam focused on the arteries. COMPARISON: CT Head without contrast 07/13/2020 10:06 AM MRI-Brain without Contrast 07/13/2020 12:10:52 PM FINDINGS: ANTERIOR CIRCULATION: Right internal carotid artery: Intracranial segment is patent with no significant stenosis. No aneurysm. Right middle cerebral artery: No occlusion or significant stenosis. No aneurysm. Right anterior cerebral artery: The right A1 is developmentally hypoplastic. 2 mm medially directed outpouching near the junction of the right A1 and A2 segment suspicious for a tiny aneurysm, image 11 series 908. Left internal carotid artery: Intracranial segment is patent with no significant stenosis. No aneurysm. Left middle cerebral artery: No occlusion or significant stenosis. No aneurysm. Left anterior cerebral artery: No occlusion or significant stenosis. No aneurysm. POSTERIOR CIRCULATION: Right vertebral artery: No occlusion or significant stenosis. No aneurysm. Left vertebral artery: No occlusion or significant stenosis. No aneurysm. Basilar artery: No occlusion or significant stenosis. No aneurysm. Right posterior cerebral artery: The right posterior cerebral artery demonstrates a moderate segmental stenosis in the P2 segment. 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 IMPRESSION: 1. 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 2. 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 Electronically signed by: Emma Ye On 07/13/2020 13:03:12 PM
--- NOTE | 2020-07-13 13:46 | REP ---
INDICATION: Occipital infarct COMPARISON: None. TECHNIQUE: Wolf scale and color Doppler evaluation using linear high frequency transducer Findings: FINDINGS: Two-dimensional wolf scale and color images demonstrate normal arterial lumen with laminar flow and no appreciable narrowing. Color Doppler interrogation demonstrates normal arterial wave patterns and velocities with no significant spectral broadening. Normal flow direction is appreciated in the bilateral vertebral arteries. ICA peak systolic velocity: Right 41.8 cm/s; Left 45.4 cm/s ICA diastolic velocity: Right 8.7 cm/s; Left 8.6 cm/s ECA peak systolic velocity: Right 65.6 cm/s; Left 112.6 cm/s CCA peak systolic velocity: Right 58.7 cm/s; Left 38.8 cm/s ICA/CCA ratio: Right 0.71 cm/s; Left 1.17 cm/s IMPRESSION: No hemodynamically significant areas of narrowing or stenosis appreciated. Based on set standards narrowing falls within the less than 50% range. <Electronically signed by Roe Mtz > 07/13/20 [id number]
[2020-07-13 13:54] VITALS: BP 178/72
[2020-07-13] MEDS: ASPIRIN 81MG ENTERIC TABLET PO SCH (14:06)
[2020-07-13] MEDS: CLOPIDOGREL 75 MG TAB PO SCH (14:07)
[2020-07-13] MEDS: ACETAMINOPHEN 500 MG TAB PO PRN ×2 (14:08→20:20)
[2020-07-13] MEDS: CALCIUM CARBONATE 500 MG CHEW U/D PO PRN (14:11)
--- NOTE | 2020-07-13 14:34 | HPEPDOC ---
General Date of Admission July 13, 2020 Date of Service: July 13, 2020 Chief Complaint The patient is a 80-year-old male admitted with a reason for visit of Headache. Source: Patient, Family History of Present Illness Mr. Zimmerman is a 80 year old male with hypothyroidism and polymyalgia rheumatic who is here for worsening vision and headache. About 3 days ago, he woke up with a headache and blurry vision, worse with the left eye. He has had injury to the left eye in the past, and he thought it may be related to that. Despite that, his vision and headache did not improve. He tried taking 1500mg of Tylenol for the headache and it only took off the edge. Since he was not improving, he came to the ED for evaluation. While in the ED, he was bradycardic, but he was hypert ensive with SBP in the 190s and 180s. CT head demonstrates subacute inaction involving the left occipital lobe. Otherwise, nurse performed vision acuity test. He scored 50/20 on the right and 70/20 on the left. Otherwise, Patient still has a headache. Patient has chronic dyspnea and chronic cough that is unchanged from prior. Patient denies any fever or chest pain. Patient will be admitted for CVA work up. Home Medications Scheduled Cholecalciferol (Vitamin D3) (Vitamin D3) 1,000 Unit Tablet, 2,000 UNITS PO DAILY, (Reported) Dicyclomine HCl (Dicyclomine HCl) 20 Mg Tablet, 20 MG PO TID, (Reported) Escitalopram Oxalate (Lexapro) 10 Mg Tablet, 10 MG PO QHS, (Reported) Omeprazole (Omeprazole) 40 Mg Capsule.dr, 40 MG PO QHS, (Reported) Prednisone (Prednisone) 5 Mg Tablet, 5 MG PO QHS, (Reported) Sucralfate (Sucralfate) 1 Gm Tab, 1 GM PO ACHS, (Reported) Thyroid,Pork (Grain Oilseed Or Pasture Farm Manager Thyroid) 60 Mg Tablet, 120 MG PO QHS, (Reported) Scheduled PRN Acetaminophen (Acetaminophen) 500 Mg Tablet, 1,000 MG PO Q6H PRN for PAIN / FE KAREN, (Reported) Metoclopramide HCl (Metoclopramide HCl) 10 Mg Tablet, 10 MG PO TID PRN for NAUSEA OR VOMITING, (Reported) Allergies Coded Allergies: No Known Allergies (Unverified , 02/26/19) Past Medical History Medical History 1. Hypothyroidism 2. Polymyalgia rheumatica 3. Diverticulosis 4. Anxiety/depression 5. Esophageal CA s/p surgery 6. IBS Surgical History 1. Back surgery in 1976 2. Esophageal and stomach resection in 2001 3. Laparoscopic cholecystectomy in 1979 4. Right knee arthrotomy in 1967 Family History Father: Heart disease, Liver cancer Mother: HBP, DM, Lung cancer Social History * Smoker: former Smoker (quit 20 years ago) Alcohol: sober Drugs: denies A-FIB/CHADSVASC A-FIB History Current/History of A-Fib/PAF?: No Review of Systems Constitutional: Denies: Chills, Fever Eyes: Reports: Vision change (Acute worsening of vision, worse on the left) ENT: Denies: Sore Throat Skin: Denies: Rash Pulmonary: Reports: Dyspnea (chronic), Cough (chronic) Cardiovascular: Reports: Lt Headedness; Denies: Chest Pain Gastrointestinal: Reports: Diarrhea (secondary to GI surgery); Denies: Abdominal Pain Genitourinary: Denies: Dysuria Hematologic: Reports: Bruising (Reports easy bruisability) Neurological: Denies: Numbness Psych: Reports: Anxiety, Depression Physical Examination General Exam: Positive: Alert, Cooperative Eye Exam: Negative: Sclera icteric Vital Signs Vital Signs Date Time Temp Pulse Resp B/P (MAP) Pulse Ox O2 Delivery O2 Flow Rate FiO2 07/13/20 11:01 53 18 184/82 (116) 97 Room Air 07/13/20 09:42 98.0 Laboratory Data Labs 24H Laboratory Tests 2 07/13/20 10:00: Immature Granulocyte % (Auto) 0.4, Neutrophils (%) (Auto) 64.1, Lymphocytes (%) (Auto) 23.0L, Monocytes (%) (Auto) 9.6H, Eosinophils (%) (Auto) 2.1, Basophils (%) (Auto) 0.8, Neutrophils # (Auto) 6.3, Lymphocytes # (Auto) 2.3, Monocytes # (Auto) 1.0H, Eosinophils # (Auto) 0.2, Basophils # (Auto) 0.1, Nucleated Red Blood Cells % (auto) 0.0, Erythrocyte Sedimentation Rate 12, Urine Color YELLOW, Urine Appearance CLEAR, Urine pH 7.0, Urine Specific [place] 1.018, Urine Protein NEGATIVE, Urine Glucose (UA) NEGATIVE, Urine Ketones NEGATIVE, Urine Blood NEGATIVE, Urine Nitrite NEGATIVE, Urine Bilirubin NEGATIVE, Urine Urobilinogen 2.0H, Urine Leukocyte Esterase NEGATIVE, Urine WBC (Auto) 0, Urine RBC (Auto) 1, Urine Hyaline Casts (Auto) 0, Urine Bacteria (Auto) NEGATIVE, Urine Squamous Epithelial Cells 0, Urine Mucus (Auto) SMALL, Urine Sperm (Auto) , Anion Gap 6L, Glomerular Filtration Rate > 60.0, Osmolality 286, Calcium Level 9.3, Total Bilirubin 0.3, Direct Bilirubin 0.1, Aspartate Amino Transf (AST/SGOT) 19, Alanine Aminotransferase (ALT/SGPT) 30, Alkaline Phosphatase 94, Ammonia 18, Total Creatine Kinase 53, Creatine Kinase MB 2.0, Creatine Kinase MB Relative Index 3.77, Troponin I < 0.02, Total Protein 6.7, Albumin 3.4, Albumin/Globulin Ratio 1.0, Thyroid Stimulating Hormone (TSH) 0.066L 07/13/20 10:23: Bedside Glucose (Misc Panel) 88 07/13/20 11:21: Coronavirus (COVID-19)(PCR) NEGATIVE CBC/BMP Laboratory Tests 07/13/20 10:00 Assessment/Plan Mr. Zimmerman is a 80 year old male with hypothyroidism and polymyalgia rheumatic who is here for worsening vision and headache. On CT head, he was found to have a subacute infection involving the left occipital lobe. Patient was admitted for CVA work up which includes MRI, MRA, US carotids, echocardiogram, telemetry monitoring, HbA1c, and lipid levels. Otherwise, PT/OT has been ordered. I reached out to neurology, Dr. Burnett. Recommended DAPT for 30 days, then aspirin alone. He will see the patient tomorrow. Plan / VTE VTE Prophylaxis Ordered?: Yes Plan Plan 1. Left occipital CVA -Most likely cause to his blurry vision (ESR low at 12) -MRI brain: (Radiologist interpretation) Recent, subacute left BULLDOZER MECHANIC territory infarct -MRA head:(Radiologist interpretation) 1. 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 2. 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 -US carotid:(Radiologist interpretation) No hemodynamically significant areas of narrowing or stenosis appreciated. Based on set standards narrowing falls within the less than 50% range. -Echocardiogram ordered -Telemetry ordered -Ordered lipid panel and HbA1c for tomorrow morning -DAPT for 30 days follow by aspirin alone -Statin -Permissive hypertension (systolic blood pressure between 180 to 140) 2. Polymyalgia rheumatic -Continue Prednisone 5mg qD 3. Esophageal cancer s/p esophageal and gastric surgery -Continue sucralfate and omeprazole -Continue PRN metoclopramide and dicyclomine 4. Hypothyroidism -Continue thyroid replacement ([place] Thyroid) 5. Anxiety/depression -Continue Lexapro 6. DVT ppx -Patient on DAPT. Add SCD and TEDs Disposition: Patient requires 48 hours of permissive hypertension SATINDER ARAYA DO July 13, 2020 12:48
[2020-07-13] MEDS ORDERED: SLF 3 ML SYR IV PRN (14:55)
[2020-07-13] MEDS: DICYCLOMINE 10 MG CAP PO SCH ×2 (15:51→20:24)
[2020-07-13 16:03] VITALS: BP 189/85
[2020-07-13] MEDS: hydrALAZINE 20MG/ML 1ML VIAL (J0360 PER 20MG) IV PRN ×2 (16:58→20:20)
[2020-07-13] MEDS: SUCRALFATE 1 GM TAB PO SCH ×2 (16:59→20:24)
[2020-07-13 20:00] VITALS: BP 187/75
[2020-07-13] MEDS: THYROID 30 MG TAB PO SCH (20:23)
[2020-07-13] MEDS: PANTOPRAZOLE 40MG TAB (PROTONIX) PO SCH (20:23)
[2020-07-13] MEDS: ATORVASTATIN 20 MG TAB PO SCH (20:23)
[2020-07-13] MEDS: ESCITALOPRAM OXALATE 10 MG TAB (LEXAPRO) PO SCH (20:23)
[2020-07-13] MEDS: SLF 3 ML SYR IV SCH (20:24)
[2020-07-13] MEDS: predniSONE 5 MG TAB PO SCH (20:24)
[2020-07-13 20:35] VITALS: BP 148/68
[2020-07-13] MEDS ORDERED: OMEPRAZOLE 20 MG CAP PO SCH (21:00)
[2020-07-14] VITALS (8 sets, daily range): BP systolic 151–192; BP diastolic 65–98
[2020-07-14] MEDS: ACETAMINOPHEN 500 MG TAB PO PRN (02:33)
[2020-07-14] MEDS: SLF 3 ML SYR IV SCH ×3 (05:15→22:16)
[2020-07-14 05:30] LABS: HEMATOCRIT 42.4 % (42.0-52.0); HEMOGLOBIN 13.8 g/dl (13.5-17.5); MEAN CORPUSCULAR HEMOGLOBIN 28.2 pg (27.0-33.0); MEAN CORPUSCULAR HGB CONC 32.5 g/dl (32.0-36.5); MEAN CORPUSCULAR VOLUME 86.5 fl (80.0-96.0); PLATELET COUNT, AUTOMATED 242 10^3/uL (150-450); WHITE BLOOD COUNT 10.7 10^3/uL (4.0-10.0)
[2020-07-14] MEDS: CALCIUM CARBONATE 500 MG CHEW U/D PO PRN ×2 (05:45→19:18)
[2020-07-14 05:53] LABS: HEMOGLOBIN A1c 5.4 %
[2020-07-14 06:07] LABS: BLOOD UREA NITROGEN 10 MG/DL (7-18); CALCIUM LEVEL 9.8 MG/DL (8.8-10.2); CARBON DIOXIDE LEVEL 27 MEQ/L (21-32); CHLORIDE LEVEL 101 MEQ/L (98-107); CHOLESTEROL LEVEL 204 MG/DL (<200); CHOLESTEROL RISK RATIO 3.642 (<5); GLOMERULAR FILTRATION RATE > 60.0 (>42); GLUCOSE, FASTING 107 MG/DL (70-100); HDL CHOLESTEROL 56 MG/DL (>40); LDL CHOLESTEROL 125 MG/DL (<100); NON-HDL-C 148 MG/DL; POTASSIUM SERUM 4.2 MEQ/L (3.5-5.1); SODIUM LEVEL 135 MEQ/L (136-145); TRIGLYCERIDES LEVEL 113 MG/DL (<150)
[2020-07-14] MEDS: SUCRALFATE 1 GM TAB PO SCH ×4 (09:06→20:02)
[2020-07-14] MEDS: DICYCLOMINE 10 MG CAP PO SCH ×3 (09:07→20:03)
[2020-07-14] MEDS: FIORICET TAB PO PRN ×2 (09:08→14:41)
[2020-07-14] MEDS: VITAMIN D 1,000 INTERNATIONAL UNITS TABLET PO SCH (09:08)
[2020-07-14] MEDS: CLOPIDOGREL 75 MG TAB PO SCH (09:09)
[2020-07-14] MEDS: ASPIRIN 81MG ENTERIC TABLET PO SCH (09:09)
--- NOTE | 2020-07-14 09:22 | ECGEPIP ---
[facility] - ED Test Date: 2020-07-13 Pat Name: DARSHANA RAO Department: Room: - Gender: Male Press Machine Operator: Vickey IZQUIERDO : 1940 Requested By: Khushi Villegas Order Number: [id number] Reading MD: hKushi Villegas Measurements Intervals [place] Rate: 55 P: 47 MI: 208 QRS: -10 QRSD: 98 T: 63 QT: 412 QTc: 394 Interpretive Statements Sinus bradycardia similar 08/22/19 Electronically Signed on 07-14-2020 9:22:46 EDT by Khushi Villegas
--- NOTE | 2020-07-14 09:46 | IPNPDOC ---
Subjective Date Seen The patient was seen on 07/14/20. Subjective Chief Complaint/HPI Mr. Zimmerman is a 80 year old male with hypothyroidism and polymyalgia rheumatic who is here for worsening vision and headache. No arrhythmia (other than bradycardia) seen on telemetry overnight. This morning, still has a headache despite acetaminophen 1000mg q6h PRN. Will add Fioricet q6h PRN and decrease acetaminophen to 650mg q6h PRN. Otherwise, patient denies any worsening of vision and weakness. CN 3-12 grossly intact. Objective Physical Examination General Exam: Positive: Alert, Cooperative Eye Exam: Negative: Sclera icteric ENT Exam: Positive: Atraumatic Neck Exam: Positive: Supple Chest Exam: Positive: Clear to auscultation Heart Exam: Positive: Rate Normal, Bradycardic Abdomen Exam: Positive: Normal bowel sounds, Soft; Negative: Tenderness Extremity Exam: Negative: Edema Neuro Exam: Positive: Normal Speech, Cranial Nerves 3-12 NL Psych Exam: Positive: Mental status NL, Mood NL; Negative: Oriented x 3 (Has trouble with year) Assessment /Plan Assessment Mr. Zimmerman is a 80 year old male with hypothyroidism and polymyalgia rheumatic who is here for worsening vision and headache. On CT head, he was found to have a subacute infection involving the left occipital lobe. Patient was admitted for CVA work up which includes MRI, MRA, US carotids, echocardiogram, telemetry monitoring, HbA1c, and lipid levels. Otherwise, PT/OT has been ordered. I reached out to neurology, Dr. Burnett. Recommended DAPT for 30 days, then aspirin alone. He will see the patient tomorrow. Plan/VTE VTE Prophylaxis Ordered?: Yes Plan 1. Left occipital CVA -Most likely cause to his blurry vision (ESR low at 12) -MRI brain: (Radiologist interpretation) Recent, subacute left MAIL CENSOR territory infarct -MRA head:(Radiologist interpretation) 1. 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 2. 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 -US carotid:(Radiologist interpretation) No hemodynamically significant areas of narrowing or stenosis appreciated. Based on set standards narrowing falls within the less than 50% range. -Echocardiogram ordered -Telemetry ordered -Lipid panel: TChol 204, LDL 125, HDL 56 -HbA1c: 5.4 -DAPT for 30 days follow by aspirin alone -Atorvastatin 40mg qHS -Permissive hypertension (systolic blood pressure between 180 to 140) 2. Polymyalgia rheumatic -Continue Prednisone 5mg qD 3. Esophageal cancer s/p esophageal and gastric surgery -Continue sucralfate and omeprazole -Continue PRN metoclopramide and dicyclomine 4. Hypothyroidism -Continue thyroid replacement ([place] Thyroid) 5. Anxiety/depression -Continue Lexapro 6. DVT ppx -Patient on DAPT. Add SCD and TEDs Disposition: Patient requires 48 hours of permissive hypertension. Pending neurology recommendations VS[facility] Sign[facility]/I&O Vital Signs Date Time Temp Pulse Resp B/P (MAP) Pulse Ox O2 Delivery O2 Flow Rate FiO2 07/14/20 09:08 18 07/14/20 07:32 98.8 58 173/72 (105) 91 Room Air I&O- Last 24 Hours up to 6 AM 07/14/20 06:00 Intake Total 100 ml Output Total 675 ml Balance -575 ml Laboratory Data 24H LABS Laboratory Tests 2 07/13/20 10:00: Immature Granulocyte % (Auto) 0.4, Neutrophils (%) (Auto) 64.1, Lymphocytes (%) (Auto) 23.0L, Monocytes (%) (Auto) 9.6H, Eosinophils (%) (Auto) 2.1, Basophils (%) (Auto) 0.8, Neutrophils # (Auto) 6.3, Lymphocytes # (Auto) 2.3, Monocytes # (Auto) 1.0H, Eosinophils # (Auto) 0.2, Basophils # (Auto) 0.1, Nucleated Red Blood Cells % (auto) 0.0, Erythrocyte Sedimentation Rate 12, Urine Color YELLOW, Urine Appearance CLEAR, Urine pH 7.0, Urine Specific [place] 1.018, Urine Protein NEGATIVE, Urine Glucose (UA) NEGATIVE, Urine Ketones NEGATIVE, Urine Blood NEGATIVE, Urine Nitrite NEGATIVE, Urine Bilirubin NEGATIVE, Urine Urobilinogen 2.0H, Urine Leukocyte Esterase NEGATIVE, Urine WBC (Auto) 0, Urine RBC (Auto) 1, Urine Hyaline Casts (Auto) 0, Urine Bacteria (Auto) NEGATIVE, Urine Squamous Epithelial Cells 0, Urine Mucus (Auto) SMALL, Urine Sperm (Auto) , Anion Gap 6L, Glomerular Filtration Rate > 60.0, Osmolality 286, Calcium Level 9.3, Total Bilirubin 0.3, Direct Bilirubin 0.1, Aspartate Amino Transf (AST/SGOT) 19, Alanine Aminotransferase (ALT/SGPT) 30, Alkaline Phosphatase 94, Ammonia 18, Total Creatine Kinase 53, Creatine Kinase MB 2.0, Creatine Kinase MB Relative Index 3.77, Troponin I < 0.02, Total Protein 6.7, Albumin 3.4, Albumin/Globulin Ratio 1.0, Thyroid Stimulating Hormone (TSH) 0.066L, Free Thyroxine 0.80, Free Triiodothyronine 3.4 07/13/20 10:23: Bedside Glucose (Misc Panel) 88 07/13/20 11:21: Coronavirus (COVID-19)(PCR) NEGATIVE 07/14/20 05:20: Nucleated Red Blood Cells % (auto) 0.0, Anion Gap 7L, Glomerular Filtration Rate > 60.0, Calcium Level 9.8, Estimated Mean Plasma Glucose 108, Hemoglobin A1c 5.4, Triglycerides Level 113, Total Cholesterol 204H, LDL Cholesterol 125H, Non- HDL Cholesterol (LDL + VLDL) 148, Total HDL Cholesterol 56, Cholesterol/HDL Ratio 3.642 CBC/BMP Laboratory Tests 07/13/20 10:00 07/14/20 05:20 SATINDER ARAYA DO July 14, 2020 09:46
[2020-07-14] MEDS: hydrALAZINE 20MG/ML 1ML VIAL (J0360 PER 20MG) IV PRN (11:59)
[2020-07-14] MEDS ORDERED: ACETAMINOPHEN TAB 650MG DOSE (2X325MG) PO PRN (12:45)
[2020-07-14] MEDS: THYROID 30 MG TAB PO SCH (20:02)
[2020-07-14] MEDS: PANTOPRAZOLE 40MG TAB (PROTONIX) PO SCH (20:03)
[2020-07-14] MEDS: predniSONE 5 MG TAB PO SCH (20:03)
[2020-07-14] MEDS: ESCITALOPRAM OXALATE 10 MG TAB (LEXAPRO) PO SCH (20:03)
[2020-07-14] MEDS: ATORVASTATIN 20 MG TAB PO SCH (20:03)
[2020-07-15] VITALS: BP 148/57
[2020-07-15 04:00] VITALS: BP 144/69
[2020-07-15] MEDS: SLF 3 ML SYR IV SCH ×2 (05:31→14:00)
[2020-07-15 05:43] LABS: BLOOD UREA NITROGEN 10 MG/DL (7-18); CALCIUM LEVEL 9.6 MG/DL (8.8-10.2); CARBON DIOXIDE LEVEL 29 MEQ/L (21-32); CHLORIDE LEVEL 103 MEQ/L (98-107); CREATININE FOR GFR 0.78 MG/DL (0.70-1.30); GLOMERULAR FILTRATION RATE > 60.0 (>42); GLUCOSE, FASTING 100 MG/DL (70-100); POTASSIUM SERUM 4.4 MEQ/L (3.5-5.1); SODIUM LEVEL 137 MEQ/L (136-145)
[2020-07-15 07:26] LABS: HEMATOCRIT 43.7 % (42.0-52.0); HEMOGLOBIN 14.2 g/dl (13.5-17.5); MEAN CORPUSCULAR HEMOGLOBIN 28.6 pg (27.0-33.0); MEAN CORPUSCULAR HGB CONC 32.5 g/dl (32.0-36.5); MEAN CORPUSCULAR VOLUME 88.1 fl (80.0-96.0); PLATELET COUNT, AUTOMATED 226 10^3/uL (150-450); RED BLOOD COUNT 4.96 10^6/uL (4.30-6.10); WHITE BLOOD COUNT 8.5 10^3/uL (4.0-10.0)
[2020-07-15 07:55] VITALS: BP 136/50
--- NOTE | 2020-07-15 08:47 | CR ---
CONSULTATION DATE: 07/14/2020 REFERRING PHYSICIAN: Ryan Hansen DO REASON FOR CONSULTATION: Right-sided visual deficit. HISTORY OF PRESENT ILLNESS: Bobby Zimmerman is a 80-year-old man with a history of polymyalgia rheumatic, hypothyroidism who was at his baseline state of health until three days when he woke up with a headache and blurred vision in both eyes. He had injury to left eye in the past and thought it may be related to that. His right-sided vision problem and headaches did not improve. In the emergency department, he was noted to be bradycardic with hypertension and systolic blood pressure in the 190s. CT scan of head showed subacute stroke in the left occipital head region. The patient denies any neck pain, back pain, dysphagia, dysarthria, diplopia, urinary incontinence, difficulty walking, numbness, weakness of arms and legs, trouble with speech or seizures. PAST MEDICAL HISTORY: Polymyalgia rheumatica, hypothyroidism, esophageal cancer, IBS, back surgery in 1976, esophageal and stomach resection in 2001, cholecystectomy, right knee surgery. ALLERGIES: None. HOME MEDICATIONS: 1. Lexapro 10 mg p.o. daily. 2. Omeprazole 40 mg. p.o. daily. 3. Prednisone 5 mg p.o. daily. 4. Sucralfate 1 gm p.o. with meals. 5. LIFT TEAM TECHNICIAN thyroid 120 mg p.o. daily. SCHEDULED P.R.N. MEDICATIONS: 1. Tylenol 1000 mg p.o. q.6 hours p.r.n. 2. Metoclopramide 10 mg p.o. t.i.d. p.r.n. FAMILY HISTORY: Father with a history of heart disease, liver cancer. Mother with a history of lung cancer, diabetes and hypertension. SOCIAL HISTORY: The patient is a former smoker. REVIEW OF SYSTEMS: All systems are reviewed and found to be noncontributory except as mentioned in history of present illness. PHYSICAL EXAMINATION: VITAL SIGNS: Temperature 97.1, pulse 59, respiratory rate 18, blood pressure 192/98, 91% saturation on room air. HEART: Regular rate and rhythm. LUNGS: Clear to auscultation. ABDOMEN: Soft, nontender, nondistended. EXTREMITIES: No pedal edema. MUSCULOSKELETAL: No abnormalities. SKIN: No rash. NEUROLOGICAL: No signs of meningeal irritation. No tremor or dysmetria. The patient is awake, alert, oriented to place, person and time. Normal speech, comprehension and repetition. Extraocular muscles are intact. No facial weakness. Tongue and uvula are midline. He has right-sided visual field deficit in the form of homonymous hemianopsia. 5/5 strength in all four extremities. Deep tendon reflexes are 2+ throughout. Normal sensation throughout. Gait is normal. DIAGNSTIC STUDIES: CT scan of head, MRI scan of brain showed large medial left occipital ischemic stroke. MRA, brain showed occlusion of left TELEPHONE OPERATOR RECEPTIONIST. Carotid ultrasound showed less than 50% bilateral carotid artery stenosis. ESR was 12 with TSH 0.066 with normal CBC, metabolic profile. Total cholesterol was 204 and LDL was 125 with HDL 56. ASSESSMENT: 1. Left medial occipital moderate to large ischemic stroke with occlusion of left posterior cerebral artery. 2. Less than 50% bilateral carotid artery stenosis. 3. Hypertension and dyslipidemia. PLAN: 1. Echocardiogram and continue telemetry monitoring which has shown normal sinus rhythm so far. 2. Aspirin 81 mg p.o. daily and Plavix 75 mg p.o. daily and after 30 days, Plavix can be discontinued. 3. Atorvastatin 40 mg p.o. daily. 4. Follow with our office in 1-2 weeks after hospital discharge.
[2020-07-15] MEDS: SUCRALFATE 1 GM TAB PO SCH ×2 (09:38→12:58)
[2020-07-15] MEDS: FIORICET TAB PO PRN ×2 (09:39→12:57)
[2020-07-15] MEDS: DICYCLOMINE 10 MG CAP PO SCH (09:39)
[2020-07-15] MEDS: VITAMIN D 1,000 INTERNATIONAL UNITS TABLET PO SCH (09:39)
[2020-07-15] MEDS: ASPIRIN 81MG ENTERIC TABLET PO SCH (09:39)
[2020-07-15] MEDS: CLOPIDOGREL 75 MG TAB PO SCH (09:40)
[2020-07-15 10:37] LABS: TOTAL T3 149.2 NG/DL (60.0-181.0)
[2020-07-15 12:00] VITALS: BP 148/68
--- NOTE | 2020-07-15 12:37 | ECHO ---
ECHOCARDIOGRAM DATE OF PROCEDURE: 07/15/2020 Age: 80 Gender: Male Height: 70 inches Weight: 213 pounds Body Surface Area: 2.15 m2 PATIENT LOCATION: Inpatient PCU Room 3216. REFERRING PHYSICIAN: Maira Byrnes INDICATION: CVA Cardiac source of embolic material? MEASUREMENTS: 2D Measurements: RV 4.0 cm LV 4.6 cm Septum 1.2 cm Posterior wall 1.2 cm Aortic Root 3.6 cm Ascending aorta 3.8 cm LA 4.0 cm LVEF 65% Doppler Measurements: AV 1.16 m/s LVOT - 0.97 m/s LVOT diameter 2.3 cm MV-E 61, A 86, EA ratio 0.7 Early mitral deceleration time 232 msec E prime medial 6.4, A prime medial 10, E prime lateral 6 Average E/E prime ratio 9.8/PCWP 14 mmHg PV - 0.9 m/s Pulmonary artery acceleration time 122 msec PASP - 27 mmHg IVC 1.8 cm COMMENTS: Sinus bradycardia without intraventricular conduction disturbance. M-mode and 2-dimensional echocardiography was performed with pulse, continuous wave, color flow, and tissue Doppler studies. Borderline concentric left ventricular hypertrophy with normal wall motion. Borderline left atrial enlargement with grade 1 LV diastolic dysfunction but currently normal estimated mean left atrial pressure. Normal right heart chamber sizes and wall motion and estimated pulmonary arterial pressure. Normal IVC size and collapse against an elevated central venous pressure. Normal aortic root size with slightly dilated proximal ascending aorta. Normal appearing and functioning aortic valvular apparatus. Normal appearing and functioning mitral valvular apparatus with no more than trace insufficiency. Normal appearing tricuspid valve with trace insufficiency. No apparent intracardiac mass or pericardial effusion. MTDD
[2020-07-15] MEDS ORDERED: ATOR1TAB21 PO (13:33)
[2020-07-15] MEDS ORDERED: CLOP75TA2 PO (13:33)
[2020-07-15] MEDS ORDERED: ASPI-551 PO (13:33)
[2020-07-15] MEDS ORDERED: PANT40TA29 PO (13:33)
--- NOTE | 2020-07-15 16:37 | DS.PDOC ---
Discharge Summary General Date of Admission July 13, 2020 at 12:17 Date of Discharge July 15, 2020 Specialist/Consultants Involve Neurology, Dr. Burnett Discharge Summary PROCEDURES PERFORMED DURING STAY: None ADMITTING DIAGNOSES: 1. Left occipital CVA 2. Polymyalgia rheumatica 3. Esophageal cancer status post esophageal and gastric surgery 4. Hypothyroidism 5. Anxiety/depression DISCHARGE DIAGNOSES: 1. Left occipital CVA 2. Polymyalgia rheumatica 3. Esophageal cancer status post esophageal and gastric surgery 4. Hypothyroidism 5. Anxiety/depression COMPLICATIONS/CHIEF COMPLAINT: Occipital Infarction. HISTORY OF PRESENT ILLNESS: Mr. Zimmerman is a 80 year old male with hypothyr oidism and polymyalgia rheumatic who is here for worsening vision and headache. About 3 days ago, he woke up with a headache and blurry vision, worse with the left eye. He has had injury to the left eye in the past, and he thought it may be related to that. Despite that, his vision and headache did not improve. He tried taking 1500mg of Tylenol for the headache and it only took off the edge. Since he was not improving, he came to the ED for evaluation. While in the ED, he was bradycardic, but he was hypertensive with SBP in the 190s and 180s. CT head demonstrates subacute inaction involving the left occipital lobe. Otherwise, nurse performed vision acuity test. He scored 50/20 on the right and 70/20 on the left. Otherwise, Patient still has a headache. Patient has chronic dyspnea and chronic cough that is unchanged from prior. Patient denies any fever or chest pain. Patient will be admitted for CVA work up. HOSPITAL COURSE: Patient's MRI demonstrated subacute left LEARNING PROGRAM MANAGER territory infarct while the MRA demonstrated left posterior cerebral artery occlusion in the proximal P2 segment. There is also a suspected tiny aneurysm near the junction of the right A1 and A2 segments. US carotids did not demonstrate any stenosis. Echocardiogram did not demonstrate any thrombus. Telemetry did not demonstrate any arrhythmia other than sinus bradycardia. Lipid panel was significant for total cholesterol of 204 and a LDL of 125. HbA1c was 5.4. Neurology was consulted. Recommended Aspirin and Plavix for 30 days, then Aspirin alone. Also recommended Atorvastatin 40mg qD. Otherwise, we had allowed 48 hours of permissive hypertension (SBP 140s to 180s) which patient met goal. During the hospitalization, patient continued to have headache. Acetaminophen 1000mg was not working, but Fioricet did help. On day of discharge, patient was cleared for 06/09 care at home with home PT/OT. Today, patient felt ready for home and was subsequently discharged home. DISCHARGE MEDICATIONS: Please see below. ALLERGIES: Please see below. PHYSICAL EXAMINATION ON DISCHARGE: VITAL SIGNS: Please see below. GENERAL: Comfortable, in no apparent distress. HEENT: Head normocephalic/atraumatic, EOMI, sclera clear. NECK: Supple. RESPIRATORY: Lungs clear to auscultation bilaterally, no rales, wheeze or rhonc hi. CARDIOVASCULAR: Regular rate and rhythm. ABDOMEN: Soft, nontender, no guarding or rebound tenderness. Normal bowel sounds. MUSCLE SKELETAL: No pitting edema bilaterally. NEUROLOGICAL: CN 312 grossly intact. PSYCHOLOGICAL: Normal mood and affect LABORATORY DATA: Please see below. IMAGING: Radiologist interpretation CT head without contrast 1. Findings suggest subacute infarction involving the left occipital lobe and correlation is required. No edema, mass effect or hemorrhage noted. MRI brain Recent, subacute left LEARNING PROGRAM MANAGER territory infarct MRA head 1. 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 2. 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 US carotid No hemodynamically significant areas of narrowing or stenosis appreciated. Based on set standards narrowing falls within the less than 50% range. PROGNOSIS: Good ACTIVITY: As tolerated. DIET: As tolerated DISCHARGE PLAN: Home with home services DISPOSITION: Home Health Service. DISCHARGE INSTRUCTIONS: 1. Follow-up with PCP in one week 2. Follow-up with neurology, Dr. Burnett, in one week 3. Do not take omeprazole while on Plavix. Omeprazole we'll reduce absorption of Plavix which may increase her risk of stroke ITEMS TO FOLLOWUP ON ON OUTPATIENT: 1. Patient to continue Plavix for 30 days. Afterwards, patient can continue omeprazole if desired DISCHARGE CONDITION: Stable. Total time spent on discharge planning and discharge summary: 55 minutes Vital Signs/I&Os Vital Signs Date Time Temp Pulse Resp B/P (MAP) Pulse Ox O2 Delivery O2 Flow Rate FiO2 07/15/20 13:27 18 07/15/20 12:00 97.7 61 148/68 (94) 96 Room Air I&O- Last 24 Hours up to 6 AM 07/15/20 06:00 Intake Total 1440 ml Output Total 2400 ml Balance -960 ml Laboratory Data Labs 24H Laboratory Tests 2 07/15/20 04:59: Anion Gap 5L, Glomerular Filtration Rate > 60.0, Calcium Level 9.6 07/15/20 07:21: Nucleated Red Blood Cells % (auto) 0.0 CBC/BMP Laboratory Tests 07/15/20 04:59 07/15/20 07:21 Discharge Medications Scheduled Aspirin (Aspirin EC) 81 Mg Tablet.dr, 81 MG PO DAILY Atorvastatin Calcium (Atorvastatin Calcium) 20 Mg Tablet, 40 MG PO QHS Cholecalciferol (Vitamin D3) (Vitamin D3) 1,000 Unit Tablet, 2,000 UNITS PO DAILY, (Reported) Clopidogrel Bisulfate (Clopidogrel) 75 Mg Tablet, 75 MG PO DAILY Dicyclomine HCl (Dicyclomine HCl) 20 Mg Tablet, 20 MG PO TID, (Reported) Escitalopram Oxalate (Lexapro) 10 Mg Tablet, 10 MG PO QHS, (Reported) Prednisone (Prednisone) 5 Mg Tablet, 5 MG PO QHS, (Reported) Sucralfate (Sucralfate) 1 Gm Tab, 1 GM PO ACHS, (Reported) Thyroid,Pork (Track Manager Thyroid) 60 Mg Tablet, 120 MG PO QHS, (Reported) Scheduled PRN Acetaminophen (Acetaminophen) 500 Mg Tablet, 1,000 MG PO Q6H PRN for PAIN / FEVER, (Reported) Metoclopramide HCl (Metoclopramide HCl) 10 Mg Tablet, 10 MG PO TID PRN for NAUSEA OR VOMITING, (Reported) Allergies Coded Allergies: No Known Allergies (Unverified , 02/26/19) SATINDER ARAYA DO Jul 15, 2020 16:15
== END 2020-07-15 15:30 | disposition home health service (06) | DRG 66 ==
LOC: M ED 09:42 → M ED INP 12:17 → ENRESERV 12:38 → M PCU 13:46
PROVIDERS: ADMIT Internal Medicine; ATTEND Internal Medicine
DX: I63.9 Cerebral infarction, unspecified (principal); H53.8 Other visual disturbances; M35.3 Polymyalgia rheumatica; E03.9 Hypothyroidism, unspecified; F41.9 Anxiety disorder, unspecified; F32.9 Major depressive disorder, single episode, unspecified; Z85.01 Personal history of malignant neoplasm of esophagus; Z79.82 Long term (current) use of aspirin; Z79.899 Other long term (current) drug therapy; K57.30 Diverticulosis of large intestine without perforation or abscess without bleeding; Z87.891 Personal history of nicotine dependence; I10 Essential (primary) hypertension; E78.5 Hyperlipidemia, unspecified

== ENCOUNTER → 2021-02-02 | Outpatient (CLI) | payer MEDICARE ==
[~2021-02-02] MED LIST changes: +ACET-683 PO; +ASPI-551 PO; +ATOR1TAB21 PO; +CLOP75TA2 PO; +D31000TA2 PO; +DICY20TA20 PO; +FLUO40CA PO; +LEXA1TAB PO; +METO10TA2 PO; +NP T60TA PO; +OMEP40CA5 PO; +PANT40TA29 PO
== END ==
LOC: M RAD 15:23
PROVIDERS: ATTEND Family Medicine
DX: R10.9 Unspecified abdominal pain (principal)

== ENCOUNTER → 2021-03-01 | Outpatient (REF) | payer MEDICARE ==
[2021-03-01 15:02] LABS: CLOSTRIDIUM DIFFICILE PCR NEGATIVE (NEGATIVE)
== END ==
LOC: M LAB REF 09:15
PROVIDERS: ATTEND Family Medicine
DX: R19.7 Diarrhea, unspecified (principal)

== ENCOUNTER → 2021-07-07 | Outpatient (CLI) | payer MEDICARE ==
[~2021-07-07] MED LIST changes: -D31000TA2 PO; +VITA100093 PO
[2021-07-07 15:46] LABS: BLOOD UREA NITROGEN 10 MG/DL (7-18); CREATININE FOR GFR 0.92 MG/DL (0.70-1.30); GLOMERULAR FILTRATION RATE > 60.0 (>35)
== END ==
LOC: M LAB 14:46
PROVIDERS: ATTEND Internal Medicine Gastroenterology
DX: K58.9 Irritable bowel syndrome, unspecified (principal)

== ENCOUNTER → 2021-07-09 | Outpatient (CLI) | payer MEDICARE ==
[~2021-07-09] MED LIST changes: +GASTROGRAFIN SOLUTION 30ML (Q9963) As Ordered ONE; +ISOVUE-370 76% 100ML VIAL As Ordered ONE
== END ==
LOC: M RAD 14:29
PROVIDERS: ATTEND Internal Medicine Gastroenterology
DX: K76.89 Other specified diseases of liver (principal); R10.13 Epigastric pain; R19.7 Diarrhea, unspecified; N28.1 Cyst of kidney, acquired; M51.36 Other intervertebral disc degeneration, lumbar region; I70.0 Atherosclerosis of aorta; Z90.49 Acquired absence of other specified parts of digestive tract; Z90.89 Acquired absence of other organs; K57.30 Diverticulosis of large intestine without perforation or abscess without bleeding
CPT/HCPCS: 74178; Q9963; Q9967

== ENCOUNTER → 2021-07-11 | Outpatient (CLI) | payer MEDICARE ==
[~2021-07-11] MED LIST changes: -GASTROGRAFIN SOLUTION 30ML (Q9963) As Ordered ONE; -ISOVUE-370 76% 100ML VIAL As Ordered ONE
== END ==
LOC: M LABSMTC 09:56
PROVIDERS: ATTEND Internal Medicine Gastroenterology
DX: Z01.812 Encounter for preprocedural laboratory examination (principal); Z20.822 Contact with and (suspected) exposure to COVID-19

== ENCOUNTER 2021-07-15 11:18 | Day surgery (SDC) | payer MEDICARE ==
[~2021-07-15] VITALS: Ht 177.8 cm; Wt 95.6 kg
[~2021-07-15 11:18] MED LIST changes: +NS 1,000 ML IV ONE
[2021-07-15] MEDS ORDERED: LIDOCAINE 2% 100MG/5ML SDV (FOR ANES.) As Ordered ONE (12:30)
[2021-07-15] MEDS ORDERED: propofoL 200 MG/20 ML VIAL As Ordered ONE (12:31)
[2021-07-15] MEDS ORDERED: ePHEDrine SULFATE 25 MG/5 ML(5MG/ML) SYRINGE As Ordered ONE (12:51)
[2021-07-15 13:16] VITALS: BP 86/47
== END 2021-07-15 13:34 | disposition home or self-care (01) ==
LOC: M OPP 11:18
PROVIDERS: ATTEND Internal Medicine Gastroenterology
DX: R10.13 Epigastric pain (principal); R19.7 Diarrhea, unspecified; R63.4 Abnormal weight loss; D12.6 Benign neoplasm of colon, unspecified; D13.0 Benign neoplasm of esophagus; K64.0 First degree hemorrhoids; K57.30 Diverticulosis of large intestine without perforation or abscess without bleeding; K20.80 Other esophagitis without bleeding; Z98.84 Bariatric surgery status; E78.5 Hyperlipidemia, unspecified; E03.9 Hypothyroidism, unspecified; M19.90 Unspecified osteoarthritis, unspecified site; Z86.73 Personal history of transient ischemic attack (TIA), and cerebral infarction without residual deficits; Z85.01 Personal history of malignant neoplasm of esophagus; Z87.891 Personal history of nicotine dependence; Z96.651 Presence of right artificial knee joint; Z79.82 Long term (current) use of aspirin; Z79.899 Other long term (current) drug therapy

== ENCOUNTER → 2021-08-19 | Outpatient (CLI) | payer MEDICARE ==
[~2021-08-19] MED LIST changes: -NS 1,000 ML IV ONE
[2021-08-19 10:09] LABS: HEMATOCRIT 42.5 % (42.0-52.0); HEMOGLOBIN 13.9 g/dl (13.5-17.5); MEAN CORPUSCULAR HGB CONC 32.7 g/dl (32.0-36.5); MEAN CORPUSCULAR VOLUME 85.7 fl (80.0-96.0); PLATELET COUNT, AUTOMATED 233 10^3/uL (150-450); RED BLOOD COUNT 4.96 10^6/uL (4.30-6.10); WHITE BLOOD COUNT 9.6 10^3/uL (4.0-10.0)
[2021-08-19 10:35] LABS: HEMOGLOBIN A1c 5.5 %
[2021-08-19 10:54] LABS: ALBUMIN 3.5 GM/DL (3.2-5.2); ALT/SGPT 37 U/L (12-78); BILIRUBIN,TOTAL 0.3 MG/DL (0.2-1.0); BLOOD UREA NITROGEN 8 MG/DL (7-18); CALCIUM LEVEL 9.4 MG/DL (8.8-10.2); CARBON DIOXIDE LEVEL 29 MEQ/L (21-32); CHLORIDE LEVEL 105 MEQ/L (98-107); CHOLESTEROL LEVEL 162 MG/DL (<200); CHOLESTEROL RISK RATIO 2.655 (<5); CREATININE FOR GFR 0.89 MG/DL (0.70-1.30); GLOMERULAR FILTRATION RATE > 60.0 (>35); GLUCOSE, FASTING 96 MG/DL (70-100); HDL CHOLESTEROL 61 MG/DL (>40); LDL CHOLESTEROL 62 MG/DL (<100); NON-HDL-C 101 MG/DL; POTASSIUM SERUM 4.3 MEQ/L (3.5-5.1); PROSTATIC SPECIFIC AG MONITOR 3.59 NG/ML (< 4.00); SODIUM LEVEL 140 MEQ/L (136-145); THYROID STIMULATING HORMONE 0.105 uIU/ML (0.358-3.740); TOTAL PROTEIN 6.7 GM/DL (6.4-8.2); TRIGLYCERIDES LEVEL 193 MG/DL (<150)
[2021-08-19 10:59] LABS: TESTOSTERONE 389 NG/DL (241-827)
== END ==
LOC: M LAB 09:16
PROVIDERS: ATTEND Family Medicine
DX: R53.83 Other fatigue (principal); I10 Essential (primary) hypertension; E03.9 Hypothyroidism, unspecified; Z79.899 Other long term (current) drug therapy; R97.20 Elevated prostate specific antigen [PSA]

== ENCOUNTER → 2021-11-30 | Outpatient (CLI) | payer MEDICARE ==
[2021-11-30 16:34] LABS: HEMATOCRIT 43.3 % (42.0-52.0); HEMOGLOBIN 14.2 g/dl (13.5-17.5); MEAN CORPUSCULAR HEMOGLOBIN 29.4 pg (27.0-33.0); MEAN CORPUSCULAR HGB CONC 32.8 g/dl (32.0-36.5); MEAN CORPUSCULAR VOLUME 89.6 fl (80.0-96.0); PLATELET COUNT, AUTOMATED 255 10^3/uL (150-450); RED BLOOD COUNT 4.83 10^6/uL (4.30-6.10); WHITE BLOOD COUNT 10.6 10^3/uL (4.0-10.0)
[2021-11-30 16:55] LABS: ERYTHROCYTE SEDIMENTATION RATE 7 mm/hr (0-20)
[2021-11-30 17:14] LABS: ALBUMIN 3.9 GM/DL (3.2-5.2); ALT/SGPT 38 U/L (12-78); BILIRUBIN,TOTAL 0.4 MG/DL (0.2-1.0); BLOOD UREA NITROGEN 14 MG/DL (7-18); CALCIUM LEVEL 9.5 MG/DL (8.8-10.2); CARBON DIOXIDE LEVEL 27 MEQ/L (21-32); CHLORIDE LEVEL 100 MEQ/L (98-107); CREATININE FOR GFR 1.13 MG/DL (0.70-1.30); GLOMERULAR FILTRATION RATE > 60.0 (>35); GLUCOSE, FASTING 120 MG/DL (70-100); POTASSIUM SERUM 4.6 MEQ/L (3.5-5.1); SODIUM LEVEL 133 MEQ/L (136-145); TOTAL PROTEIN 7.3 GM/DL (6.4-8.2); URIC ACID 5.1 MG/DL (3.5-7.2)
[2021-11-30 17:23] LABS: HEMOGLOBIN A1c 5.8 %
== END ==
LOC: M LAB 15:22
PROVIDERS: ATTEND Family Medicine
DX: D64.9 Anemia, unspecified (principal); R53.83 Other fatigue; E03.9 Hypothyroidism, unspecified; R97.20 Elevated prostate specific antigen [PSA]; Z79.899 Other long term (current) drug therapy

== ENCOUNTER → 2021-12-26 | Outpatient (CLI) | payer MEDICARE ==
[~2021-12-26] MED LIST changes: -DOXY-350 PO; +DOXY-444 PO
[2021-12-26 08:52] LABS: HEMATOCRIT 42.7 % (42.0-52.0); HEMOGLOBIN 13.7 g/dl (13.5-17.5); MEAN CORPUSCULAR HEMOGLOBIN 29.3 pg (27.0-33.0); MEAN CORPUSCULAR HGB CONC 32.1 g/dl (32.0-36.5); MEAN CORPUSCULAR VOLUME 91.4 fl (80.0-96.0); PLATELET COUNT, AUTOMATED 276 10^3/uL (150-450); RED BLOOD COUNT 4.67 10^6/uL (4.30-6.10); WHITE BLOOD COUNT 10.2 10^3/uL (4.0-10.0)
[2021-12-26 09:33] LABS: ALBUMIN 3.3 GM/DL (3.2-5.2); ALT/SGPT 34 U/L (12-78); BILIRUBIN,TOTAL 0.4 MG/DL (0.2-1.0); BLOOD UREA NITROGEN 12 MG/DL (7-18); CALCIUM LEVEL 9.3 MG/DL (8.8-10.2); CARBON DIOXIDE LEVEL 30 MEQ/L (21-32); CHLORIDE LEVEL 102 MEQ/L (98-107); CHOLESTEROL LEVEL 146 MG/DL (<200); CHOLESTEROL RISK RATIO 2.517 (<5); CREATININE FOR GFR 1.09 MG/DL (0.70-1.30); GLOMERULAR FILTRATION RATE > 60.0 (>35); GLUCOSE, FASTING 106 MG/DL (70-100); HDL CHOLESTEROL 58 MG/DL (>40); LDL CHOLESTEROL 62 MG/DL (<100); NON-HDL-C 88 MG/DL; POTASSIUM SERUM 4.4 MEQ/L (3.5-5.1); PROSTATIC SPECIFIC AG MONITOR 2.84 NG/ML (< 4.00); SODIUM LEVEL 135 MEQ/L (136-145); TOTAL PROTEIN 6.9 GM/DL (6.4-8.2); TRIGLYCERIDES LEVEL 131 MG/DL (<150)
[2021-12-26 09:53] LABS: HEMOGLOBIN A1c 5.7 %
[2021-12-28 10:10] LABS: TESTOSTERONE 323 NG/DL (241-827)
== END ==
LOC: M LAB 08:10
PROVIDERS: ATTEND Family Medicine
DX: R53.83 Other fatigue (principal); I10 Essential (primary) hypertension; E11.9 Type 2 diabetes mellitus without complications; E03.9 Hypothyroidism, unspecified; R97.20 Elevated prostate specific antigen [PSA]

== ENCOUNTER → 2022-04-23 | Outpatient (CLI) | payer MEDICARE ==
[2022-04-23 11:16] LABS: HEMATOCRIT 42.5 % (42.0-52.0); HEMOGLOBIN 13.6 g/dl (13.5-17.5); MEAN CORPUSCULAR VOLUME 87.6 fl (80.0-96.0); PLATELET COUNT, AUTOMATED 301 10^3/uL (150-450); RED BLOOD COUNT 4.85 10^6/uL (4.30-6.10); WHITE BLOOD COUNT 22.7 10^3/uL (4.0-10.0)
[2022-04-23 11:47] LABS: HEMOGLOBIN A1c 5.7 % (4.0-6.0)
[2022-04-23 11:52] LABS: ALBUMIN 3.6 G/DL (3.2-5.2); ALKALINE PHOSPHATASE 69 U/L (46-116); ALT/SGPT 24 U/L (7.0-40); AST/SGOT 23 U/L (<34); BILIRUBIN,TOTAL 0.2 MG/DL (0.3-1.2); BLOOD UREA NITROGEN 21 MG/DL (9-23); CALCIUM LEVEL 9.3 MG/DL (8.3-10.6); CARBON DIOXIDE LEVEL 29 MMOL/L (20-31); CHLORIDE LEVEL 101 MMOL/L (98-107); CREATININE FOR GFR 0.92 MG/DL (0.70-1.30); GLOMERULAR FILTRATION RATE > 60.0 (>35); GLUCOSE, FASTING 64 MG/DL (74-106); POTASSIUM SERUM 4.3 MMOL/L (3.5-5.1); SODIUM LEVEL 137 MMOL/L (136-145); TOTAL 25(OH) VITAMIN D 44.2 NG/ML (20.0-100.0); TOTAL PROTEIN 6.7 G/DL (5.7-8.2)
[2022-04-23 11:53] LABS: THYROID STIMULATING HORMONE 3.106 uIU/ML (0.55-4.78)
== END ==
LOC: M RAD 10:32
PROVIDERS: ATTEND Family Medicine
DX: J44.9 Chronic obstructive pulmonary disease, unspecified (principal); J94.9 Pleural condition, unspecified; K44.9 Diaphragmatic hernia without obstruction or gangrene; I10 Essential (primary) hypertension; E11.9 Type 2 diabetes mellitus without complications
CPT/HCPCS: 36415; 71046; 80053; 82306; 83036; 84443; 85027; G0103

== ENCOUNTER → 2022-04-28 | Outpatient (CLI) | payer MEDICARE ==
[2022-04-28 11:58] LABS: HEMATOCRIT 42.7 % (42.0-52.0); HEMOGLOBIN 13.7 g/dl (13.5-17.5); MEAN CORPUSCULAR HEMOGLOBIN 28.2 pg (27.0-33.0); MEAN CORPUSCULAR HGB CONC 32.1 g/dl (32.0-36.5); MEAN CORPUSCULAR VOLUME 87.9 fl (80.0-96.0); PLATELET COUNT, AUTOMATED 212 10^3/uL (150-450); RED BLOOD COUNT 4.86 10^6/uL (4.30-6.10); WHITE BLOOD COUNT 13.6 10^3/uL (4.0-10.0)
[2022-04-28 12:08] LABS: ERYTHROCYTE SEDIMENTATION RATE 23 mm/hr (0-20)
== END ==
LOC: M LAB 11:18
PROVIDERS: ATTEND Family Medicine
DX: D64.9 Anemia, unspecified (principal)

== ENCOUNTER → 2023-08-23 | Outpatient (CLI) | payer MEDICARE ==
[~2023-08-23] MED LIST changes: +CHLO1CAP PO; -CHLO1CAP14 PO; +DICY-61 PO; -DICY10CA13 PO; +DOXY-440 PO; -DOXY-444 PO
[2023-08-23 09:12] LABS: HEMATOCRIT 40.9 % (42.0-52.0); MEAN CORPUSCULAR HEMOGLOBIN 27.7 pg (27.0-33.0); MEAN CORPUSCULAR HGB CONC 31.8 g/dl (32.0-36.5); PLATELET COUNT, AUTOMATED 250 10^3/uL (150-450); WHITE BLOOD COUNT 10.7 10^3/uL (4.0-10.0)
[2023-08-23 09:46] LABS: TOTAL IRON BINDING CAPACITY 320 UG/DL (250-425)
[2023-08-23 10:12] LABS: ALBUMIN 3.1 G/DL (3.2-5.2); ALKALINE PHOSPHATASE 88 U/L (46-116); ALT/SGPT 30 U/L (7.0-40); AST/SGOT 15 U/L (<34); BILIRUBIN,TOTAL 0.3 MG/DL (0.3-1.2); BLOOD UREA NITROGEN 10 MG/DL (9-23); CALCIUM LEVEL 9.3 MG/DL (8.3-10.6); CARBON DIOXIDE LEVEL 29 MMOL/L (20-31); CHLORIDE LEVEL 104 MMOL/L (98-107); CHOLESTEROL LEVEL 139 MG/DL (<200); CREATININE FOR GFR 0.87 MG/DL (0.70-1.30); GLOMERULAR FILTRATION RATE > 60.0 (>35); GLUCOSE, FASTING 100 MG/DL (74-106); POTASSIUM SERUM 4.5 MMOL/L (3.5-5.1); PROSTATIC SPECIFIC AG MONITOR 2.03 NG/ML (< 4.00); SODIUM LEVEL 138 MMOL/L (136-145); TESTOSTERONE 353 NG/DL (241-827); THYROID STIMULATING HORMONE 0.365 uIU/ML (0.55-4.78); TOTAL PROTEIN 6.1 G/DL (5.7-8.2); TRIGLYCERIDES LEVEL 190 MG/DL (<150)
[2023-08-23 10:40] LABS: CHOLESTEROL RISK RATIO 2.78 (<5); HDL CHOLESTEROL 49.9 MG/DL (>40); IRON (FE) 56 UG/DL (65-175); LDL CHOLESTEROL 51.1 MG/DL (<100); NON-HDL-C 89.1 MG/DL; PERCENT SATURATION 17.5 % (19.7-50.0)
[2023-08-23 10:42] LABS: HEMOGLOBIN A1c 5.6 % (4.0-6.0)
== END ==
LOC: M LAB 08:38
PROVIDERS: ATTEND Family Medicine
DX: I10 Essential (primary) hypertension (principal); E03.9 Hypothyroidism, unspecified; R53.83 Other fatigue; Z79.899 Other long term (current) drug therapy

== ENCOUNTER 2024-01-10 11:11 | Emergency (ER) | payer MEDICARE ==
[~2024-01-10] VITALS: Ht 175.3 cm; Wt 97.2 kg
[2024-01-10 11:16] VITALS: BP 126/61; TEMP 97.4; O2SAT 94
[2024-01-10] MEDS ORDERED: SUCR1TAB56 (11:37)
[2024-01-10] MEDS ORDERED: TAMS1CAP17 (11:37)
[2024-01-10] MEDS ORDERED: METO10TA2 (11:37)
[2024-01-10] MEDS ORDERED: LOSA100T46 (11:37)
[2024-01-10] MEDS ORDERED: FERR325T19 (11:37)
[2024-01-10] MEDS ORDERED: BUPR150T12 (11:37)
[2024-01-10] MEDS ORDERED: HYDR-3713 (11:37)
[2024-01-10] MEDS: BOOSTRIX VACCINE (TETANUS/DIPHTH/ACEL. PERTUSSIS) 0.5ML SYR IM.IMMUN ONE (14:33)
[2024-01-10] MEDS: BACITRACIN OINTMENT 30GM TUBE TOP ONE (15:38)
== END 2024-01-10 15:55 | disposition left against medical advice (07) ==
LOC: M ED 11:11
DX: M25.522 Pain in left elbow (principal); W01.198A Fall on same level from slipping, tripping and stumbling with subsequent striking against other object, initial encounter; M19.022 Primary osteoarthritis, left elbow; D50.9 Iron deficiency anemia, unspecified; H54.8 Legal blindness, as defined in USA; Y92.009 Unspecified place in unspecified non-institutional (private) residence as the place of occurrence of the external cause; Y93.89 Activity, other specified; Y99.9 Unspecified external cause status; Z79.82 Long term (current) use of aspirin; Z79.02 Long term (current) use of antithrombotics/antiplatelets; Z79.52 Long term (current) use of systemic steroids; Z79.899 Other long term (current) drug therapy; Z23 Encounter for immunization; Z53.9 Procedure and treatment not carried out, unspecified reason

== ENCOUNTER → 2024-11-26 | Outpatient (CLI) | payer MEDICARE ==
[~2024-11-26] MED LIST changes: +BUPR150T12; +FERR325T19; +HYDR-3713; +LOSA100T46; +METO10TA2; +PRED-1142 PO; -PRED1TABL PO; +SUCR1TAB56; +TAMS1CAP17
== END ==
LOC: M WUC 13:45
PROVIDERS: ATTEND Nurse Practitioner Family
DX: M79.631 Pain in right forearm (principal); Z91.81 History of falling

== ENCOUNTER 2024-12-06 11:37 | Emergency (ER) | payer MEDICARE ==
[~2024-12-06] VITALS: Ht 162.6 cm; Wt 103.5 kg
[2024-12-06] MEDS: MORPHINE 2 MG/ML 1 ML VIAL IV ONE (12:50)
[2024-12-06 13:11] LABS: BASO # 0.0 10^3/uL (0.0-0.2); BASO % 0.3 % (0.0-1.0); EOS # 0.0 10^3/uL (0.0-0.5); EOS % 0.1 % (0.0-3.0); LYMPH # 1.1 10^3/uL (1.5-5.0); LYMPH % 8.6 % (24.0-44.0); MONO # 0.7 10^3/uL (0.0-0.8); MONO % 5.8 % (2.0-8.0); NEUTROPHILS # 10.6 10^3/uL (1.5-8.5); NEUTROPHILS % 84.1 % (36.0-66.0); PLATELET COUNT, AUTOMATED 358 10^3/uL (150-450)
[2024-12-06 13:34] LABS: C REACTIVE PROTEIN QUANTITATIV 8.74 MG/DL (<1.0); CALCIUM LEVEL 8.8 MG/DL (8.3-10.6); CARBON DIOXIDE LEVEL 27 MMOL/L (20-31); CHLORIDE LEVEL 97 MMOL/L (98-107); CREATININE FOR GFR 0.70 MG/DL (0.70-1.30); GLOMERULAR FILTRATION RATE > 90.0 (>35); POTASSIUM SERUM 4.5 MMOL/L (3.5-5.1); SODIUM LEVEL 134 MMOL/L (136-145)
[2024-12-06 13:46] LABS: RHEUMATOID FACTOR QUANT 310.6 IU/ML (<14)
[2024-12-06] MEDS ORDERED: PRED20TA PO (15:14)
[2024-12-06 15:23] VITALS: BP 132/68; TEMP 98; O2SAT 95
[2024-12-08 06:57] LABS: ERYTHROCYTE SEDIMENTATION RATE 20 mm/hr (0-15)
== END 2024-12-06 15:30 | disposition home or self-care (01) ==
LOC: M ED 11:37
DX: M25.50 Pain in unspecified joint (principal); M35.3 Polymyalgia rheumatica; I10 Essential (primary) hypertension; K21.9 Gastro-esophageal reflux disease without esophagitis; E03.9 Hypothyroidism, unspecified; K57.30 Diverticulosis of large intestine without perforation or abscess without bleeding; Z87.891 Personal history of nicotine dependence; Z86.79 Personal history of other diseases of the circulatory system; Z79.82 Long term (current) use of aspirin; Z79.1 Long term (current) use of non-steroidal anti-inflammatories (NSAID); Z79.899 Other long term (current) drug therapy; Z79.52 Long term (current) use of systemic steroids
CPT/HCPCS: 80048; 84550; 85025; 85652; 86140; 86431; 86618; 96374; 96375; 99284; J2919

== ENCOUNTER → 2024-12-27 | Outpatient (REF) | payer MEDICARE ==
[~2024-12-27] MED LIST changes: +PRED20TA PO
== END ==
LOC: M LAB REF 14:19
DX: M15.9 Polyosteoarthritis, unspecified (principal)

== ENCOUNTER → 2025-01-23 | Outpatient (CLI) | payer MEDICARE ==
[~2025-01-23] MED LIST changes: +ISOVUE-370 76% 100 ML VIAL ONE
== END ==
LOC: M PLAIMG 11:51
PROVIDERS: ATTEND Nurse Practitioner Family
DX: R22.1 Localized swelling, mass and lump, neck (principal)
CPT/HCPCS: 70491; Q9967

== ENCOUNTER 2025-01-29 20:00 | Inpatient (IN) | payer MEDICARE ==
[~2025-01-29] VITALS: Ht 180.3 cm; Wt 93.2 kg
[~2025-01-29 20:00] MED LIST changes: -BUPR150T12; +BUPR150T12 PO; -FERR325T19; +FERR325T19 PO; -ISOVUE-370 76% 100 ML VIAL ONE; -METO10TA2; -SUCR1TAB56; +SUCR1TAB56 PO; -TAMS1CAP17; +TAMS1CAP17 PO
[2025-01-29 20:34] LABS: BASO # 0.1 10^3/uL (0.0-0.2); BASO % 0.7 % (0.0-1.0); EOS # 0.1 10^3/uL (0.0-0.5); EOS % 0.9 % (0.0-3.0); LYMPH # 3.4 10^3/uL (1.5-5.0); LYMPH % 26.3 % (24.0-44.0); MONO # 1.1 10^3/uL (0.0-0.8); MONO % 8.8 % (2.0-8.0); NEUTROPHILS # 7.8 10^3/uL (1.5-8.5); NEUTROPHILS % 60.7 % (36.0-66.0); PLATELET COUNT, AUTOMATED 319 10^3/uL (150-450)
[2025-01-29 20:52] LABS: CK-MB VALUE MASS 2.2 NG/ML (<3.6)
[2025-01-29 20:55] LABS: CALCIUM LEVEL 9.0 MG/DL (8.3-10.6); CARBON DIOXIDE LEVEL 29 MMOL/L (20-31); CHLORIDE LEVEL 99 MMOL/L (98-107); CPK CREATINE PHOSPHOKINASE 42 U/L (46-171); CREATININE FOR GFR 0.81 MG/DL (0.70-1.30); GLOMERULAR FILTRATION RATE 87.5 (>35); MAGNESIUM LEVEL 1.9 MG/DL (1.8-2.4); MB/CK RELATIVE INDEX 5.23 (< OR =4); POTASSIUM SERUM 3.9 MMOL/L (3.5-5.1); SODIUM LEVEL 135 MMOL/L (136-145)
[2025-01-29 20:56] LABS: FREE T4 0.81 NG/DL (0.89-1.76)
[2025-01-29 20:58] LABS: INR 1.07
[2025-01-29] MEDS ORDERED: ISOVUE-370 76% 100 ML VIAL As Ordered ONE (21:03)
[2025-01-29 21:17] LABS: ALT/SGPT 20 U/L (7.0-40); AST/SGOT 17 U/L (<34)
[2025-01-29 22:30] LABS: CK-MB VALUE MASS 2.4 NG/ML (<3.6)
[2025-01-29 22:31] LABS: CPK CREATINE PHOSPHOKINASE 34.0 U/L (46-171); MB/CK RELATIVE INDEX 7.05 (< OR =4)
[2025-01-29] MEDS ORDERED: VANCOMYCIN HCL 1,000 MG, VIAL MATE ADAPTER 1 EACH in NS 250 ML IV ONE (22:45)
[2025-01-29] MEDS: VANCOMYCIN HCL 1,750 MG, VIAL MATE ADAPTER 1 EACH in NS 500 ML IV ONE (22:46)
[2025-01-29] MEDS: PIPERACILLIN/TAZOBACTAM SOD 4.5 GM in DEXTROSE 5% (D5W) ADV/MINI-BAG 50 ML IV ONE (22:46)
[2025-01-29] MEDS: NS (Normal Saline) 0.9% 1,000 ML IV ONE (22:46)
[2025-01-29] MEDS ORDERED: MIDODRINE 5 MG TAB PO PRN (23:55)
[2025-01-30 00:24] LABS: KETONE, URINE AUTO RFX NEGATIVE (NEGATIVE); LEUKOCYTE ESTERASE UR AUTO RFX NEGATIVE (NEGATIVE); MUCUS, URINE RFX SMALL (NEGATIVE); NITRITE, URINE AUTO RFX NEGATIVE (NEGATIVE); RBC, URINE AUTO RFX 1 /HPF (0-3); SQUAM EPITHELIAL CELL UR AURFX 0 /HPF (0-6); WBC, URINE AUTO RFX 0 /HPF (0-3)
[2025-01-30 04:13] VITALS: BP 156/68; O2SAT 97
[2025-01-30] MEDS: ACETAMINOPHEN 325 MG TAB PO PRN (04:43)
[2025-01-30] MEDS: PIPERACILLIN/TAZOBACTAM SOD 3.375 GM in DEXTROSE 5% (D5W) ADV/MINI-BAG 50 ML IV SCH (04:44)
[2025-01-30 05:19] VITALS: BP 134/64
[2025-01-30] MEDS: MIDODRINE 5 MG TAB PO SCH (08:00)
[2025-01-30 08:11] LABS: PLATELET COUNT, AUTOMATED 277 10^3/uL (150-450)
[2025-01-30 08:32] LABS: CALCIUM LEVEL 8.4 MG/DL (8.3-10.6); CARBON DIOXIDE LEVEL 28.0 MMOL/L (20-31); CHLORIDE LEVEL 103.0 MMOL/L (98-107); CREATININE FOR GFR 0.74 MG/DL (0.70-1.30); GLOMERULAR FILTRATION RATE 89.9 (>35); POTASSIUM SERUM 4.4 MMOL/L (3.5-5.1); SODIUM LEVEL 137.0 MMOL/L (136-145)
[2025-01-30] MEDS: HEPARIN SOD 5000 UNITS/ML 1 ML VIAL/SYRINGE SC SCH (09:00)
[2025-01-30 12:17] VITALS: BP 149/72; TEMP 98.6; O2SAT 95
[2025-01-30] MEDS ORDERED: PRED10TA2 PO (14:19)
[2025-01-30] MEDS ORDERED: ASPI81TA26 PO (14:19)
[2025-01-30] MEDS ORDERED: LOSA50TA28 PO (14:19)
[2025-01-30] MEDS ORDERED: OMEP40CA5 PO (14:20)
[2025-01-30] MEDS ORDERED: PRED20TA PO (14:25)
[2025-01-30] MEDS ORDERED: HOME MED LIST COMPLETE! XX SCH (14:30)
[2025-01-30] MEDS ORDERED: VANCOMYCIN HCL 1,250 MG, VIAL MATE ADAPTER 1 EACH in NS 250 ML IV SCH (15:00)
[2025-01-30] MEDS: SUCRALFATE 1 GM TAB PO SCH (16:31)
[2025-01-30] MEDS: predniSONE 20 MG TAB PO SCH (16:31)
[2025-01-30] MEDS ORDERED: OMEP-173 PO (19:19)
[2025-01-30 19:53] VITALS: BP 156/72; TEMP 98.7; O2SAT 94
[2025-01-30] MEDS: THYROID 30MG TAB PO SCH (20:34)
[2025-01-30] MEDS: OMEPRAZOLE 20MG CAP PO SCH (20:34)
[2025-01-30] MEDS: ESCITALOPRAM OXALATE 10 MG TABLET PO SCH (20:34)
[2025-01-30] MEDS ORDERED: ATORVASTATIN 20 MG TAB PO SCH (21:00)
[2025-01-31 02:54] VITALS: BP 163/87; TEMP 98.5; O2SAT 93
[2025-01-31 06:51] LABS: BASO # 0.1 10^3/uL (0.0-0.2); BASO % 0.6 % (0.0-1.0); EOS # 0.1 10^3/uL (0.0-0.5); EOS % 0.5 % (0.0-3.0); LYMPH # 2.4 10^3/uL (1.5-5.0); LYMPH % 22.0 % (24.0-44.0); MONO # 0.7 10^3/uL (0.0-0.8); MONO % 6.5 % (2.0-8.0); NEUTROPHILS # 7.5 10^3/uL (1.5-8.5); NEUTROPHILS % 68.5 % (36.0-66.0); PLATELET COUNT, AUTOMATED 303 10^3/uL (150-450)
[2025-01-31 07:05] LABS: CALCIUM LEVEL 8.7 MG/DL (8.3-10.6); CARBON DIOXIDE LEVEL 30 MMOL/L (20-31); CHLORIDE LEVEL 99 MMOL/L (98-107); CREATININE FOR GFR 0.69 MG/DL (0.70-1.30); GLOMERULAR FILTRATION RATE > 90.0 (>35); POTASSIUM SERUM 4.3 MMOL/L (3.5-5.1); SODIUM LEVEL 137 MMOL/L (136-145)
[2025-01-31 08:28] VITALS: BP 147/82
[2025-01-31] MEDS: ASPIRIN 81 MG ENTERIC TABLET PO SCH (08:31)
[2025-01-31] MEDS: buPROPion **XL** 150 MG TABLET PO SCH (08:31)
[2025-01-31] MEDS ORDERED: TAMSULOSIN 0.4 MG CAP PO SCH ×2 (09:00)
[2025-01-31 10:30] VITALS: BP_SYST 128; BP_SYST 147; BP_SYST 148; BP_DIAS 64; BP_DIAS 70; BP_DIAS 71
[2025-01-31 11:45] VITALS: BP 144/71; TEMP 98.7; O2SAT 94
[2025-01-31] MEDS: predniSONE 20 MG TAB PO ONE (12:20)
[2025-01-31] MEDS: TAMSULOSIN 0.4 MG CAP PO SCH (12:20)
[2025-01-31] MEDS: NS (Normal Saline) 0.9% 1,000 ML IV ONE (12:56)
[2025-01-31 14:04] VITALS: BP 151/70
[2025-01-31] MEDS ORDERED: ELIQ5TAB PO (14:04)
[2025-01-31] MEDS: METOCLOPRAMIDE 10 MG TAB PO SCH (16:23)
[2025-01-31 20:08] VITALS: BP 133/63; TEMP 98.4; O2SAT 94
[2025-01-31] MEDS: FINASTERIDE 5 MG TAB PO SCH (20:11)
[2025-01-31] MEDS ORDERED: APIXABAN 5 MG TAB PO SCH (21:00)
[2025-02-01 04:18] VITALS: BP 155/77; TEMP 98; O2SAT 96
[2025-02-01] MEDS: THYROID 30MG TAB PO SCH (05:59)
[2025-02-01 06:29] LABS: BASO # 0.1 10^3/uL (0.0-0.2); BASO % 0.5 % (0.0-1.0); EOS # 0.1 10^3/uL (0.0-0.5); EOS % 0.4 % (0.0-3.0); LYMPH # 3.1 10^3/uL (1.5-5.0); LYMPH % 25.6 % (24.0-44.0); MONO # 0.9 10^3/uL (0.0-0.8); MONO % 7.3 % (2.0-8.0); NEUTROPHILS # 7.7 10^3/uL (1.5-8.5); NEUTROPHILS % 64.0 % (36.0-66.0); PLATELET COUNT, AUTOMATED 292 10^3/uL (150-450)
[2025-02-01 07:02] LABS: CALCIUM LEVEL 8.7 MG/DL (8.3-10.6); CARBON DIOXIDE LEVEL 29 MMOL/L (20-31); CHLORIDE LEVEL 101 MMOL/L (98-107); CREATININE FOR GFR 0.65 MG/DL (0.70-1.30); GLOMERULAR FILTRATION RATE > 90.0 (>35); POTASSIUM SERUM 3.9 MMOL/L (3.5-5.1); SODIUM LEVEL 139 MMOL/L (136-145)
[2025-02-01 08:02] VITALS: BP 138/69
[2025-02-01] MEDS: TAMSULOSIN 0.4 MG CAP PO SCH (08:02)
[2025-02-01] MEDS: predniSONE 20 MG TAB PO SCH (08:02)
[2025-02-01] MEDS: METOPROLOL TART 25 MG TABLET PO SCH (08:02)
[2025-02-01] MEDS: APIXABAN 5 MG TAB PO SCH (08:03)
[2025-02-01 09:37] VITALS: BP_SYST 109; BP_SYST 132; BP_SYST 141; BP_DIAS 53; BP_DIAS 61; BP_DIAS 69
[2025-02-01] MEDS ORDERED: ARMO120T PO (11:25)
[2025-02-01] MEDS ORDERED: METO1TAB87 PO (11:25)
[2025-02-01] MEDS ORDERED: ARMO1TAB PO (11:25)
[2025-02-01] MEDS ORDERED: TAMS1CAP17 PO (11:25)
[2025-02-01] MEDS ORDERED: FINA5TAB2 PO (11:25)
[2025-02-01 12:47] VITALS: BP 158/72; TEMP 98.1; O2SAT 94
[2025-02-10] MEDS ORDERED: predniSONE 10 MG TAB PO SCH (09:00)
== END 2025-02-01 13:48 | disposition home health service (06) | DRG 312 ==
LOC: EDBD 20:00 → M ED 20:00 → M ED INP 23:46 → M MSPAV 01-30 12:15
PROVIDERS: ADMIT Student in an Organized Health Care Education/Training Program; ATTEND Internal Medicine
DX: I95.1 Orthostatic hypotension (principal); J90 Pleural effusion, not elsewhere classified; I48.91 Unspecified atrial fibrillation; E03.9 Hypothyroidism, unspecified; R42 Dizziness and giddiness; R33.9 Retention of urine, unspecified; I10 Essential (primary) hypertension; M35.3 Polymyalgia rheumatica; R31.9 Hematuria, unspecified; N40.0 Benign prostatic hyperplasia without lower urinary tract symptoms; K21.9 Gastro-esophageal reflux disease without esophagitis; F32.A Depression, unspecified; Z86.73 Personal history of transient ischemic attack (TIA), and cerebral infarction without residual deficits; R29.6 Repeated falls; Z79.899 Other long term (current) drug therapy; Z79.82 Long term (current) use of aspirin; Z79.52 Long term (current) use of systemic steroids; Z79.890 Hormone replacement therapy; E55.9 Vitamin D deficiency, unspecified; G89.29 Other chronic pain; K57.90 Diverticulosis of intestine, part unspecified, without perforation or abscess without bleeding; Z66 Do not resuscitate; K40.20 Bilateral inguinal hernia, without obstruction or gangrene, not specified as recurrent